=== PATIENT | female | born 1965 | race Caucasian/White ===

== ENCOUNTER 2021-07-23 11:44 | Outpatient (CLI) | payer MEDICAID, SELFPAY ==
--- NOTE | 2021-07-23 11:00 | DI.RAD_ITS ---
Exam(s) XR PELVIS AP EXAM: XR PELVIS AP CLINICAL HISTORY: preoperative planning. TECHNIQUE: 2D digital imaging was performed. COMPARISON: Left hip x-ray 03/12/2021 FINDINGS: No evidence of pelvic nor hip fracture. There are advanced degenerative changes in the right hip with advanced joint space narrowing and dege nerative subarticular cysts on both sides the joint. Minimal degenerative changes noted in the left hip. IMPRESSION: Advanced degenerative changes in the right hip. DATA REPOSITORY: RADIATION DOSE DELIVERED:
== END 2021-07-23 11:45 | disposition home or self-care (01) ==
LOC: DIORS 11:45
PROVIDERS: PCP Naturopath; Referring Provider Naturopath; Visit Provider Physician Assistant
DX: M16.11 Unilateral primary osteoarthritis, right hip (principal); M25.551 Pain in right hip
CPT/HCPCS: 72170

== ENCOUNTER 2021-07-30 02:04 | Outpatient (CLI) | payer MEDICAID, SELFPAY ==
[2021-07-30 10:38] LABS: Source Nasal/Nares
[2021-07-30 14:08] LABS: COVID-19 PCR Negative (Negative)
== END 2021-07-30 02:05 | disposition home or self-care (01) ==
LOC: LBO 02:04
PROVIDERS: PCP Naturopath; Visit Provider Student in an Organized Health Care Education/Training Program
DX: Z20.822 Contact with and (suspected) exposure to COVID-19 (principal); Z01.818 Encounter for other preprocedural examination
CPT/HCPCS: 87635

== ENCOUNTER 2021-07-30 02:48 | Outpatient (CLI) | payer MEDICAID, SELFPAY ==
[2021-07-30 09:45] LABS: HCT 43.9 % (36.0-46.0); HGB 14.2 g/dL (11.2-15.7); MCH 30.3 pg (27.0-33.0); MCHC 32.3 % (32.0-36.0); MCV 93.6 fL (80-95); Platelet Count 231 10^3/uL (130-400); RBC 4.69 10^6/uL (3.93-5.22); RDW 12.8 % (11.7-14.6); RDW-SD 44.1 fL; WBC 6.46 10^3/uL (4.4-10.8)
[2021-07-30 10:12] LABS: Anion Gap 7.9 mmol/L (3-11); BUN 11 mg/dL (7-18); CO2 28.1 mmol/L (21.0-32.0); CREATININE 0.9 mg/dL (0.55-1.02); Calcium 9.4 mg/dL (8.5-10.1); Chloride 103 mmol/L (98-107); Glucose 94 mg/dL (74-106); Potassium 4.5 mmol/L (3.5-5.1); Sodium 139 mmol/L (136-145)
== END 2021-07-30 02:49 | disposition home or self-care (01) ==
LOC: LBO 02:48
PROVIDERS: PCP Naturopath; Visit Provider Student in an Organized Health Care Education/Training Program
DX: M16.11 Unilateral primary osteoarthritis, right hip (principal); Z01.818 Encounter for other preprocedural examination
CPT/HCPCS: 36415; 80048; 85027; 86850; 86900; 86901

== ENCOUNTER 2021-07-31 08:51 | Day surgery (SDC) | payer MEDICAID, SELFPAY ==
[2021-07-31] VITALS (8 sets, daily range): BP systolic 103–133; BP diastolic 37–87; PULSE 62–73; RESP 12–18; TEMP 36.3–36.5; O2SAT 99–100; BMI 23.2
[2021-07-31] MEDS: Acetaminophen 500 MG TAB 1000 MG PO (09:44)
[2021-07-31] MEDS: Celecoxib 200 MG CAP 400 MG PO (09:44)
[2021-07-31] MEDS: Lactated Ringers 1,000 ML 80 ML IV (10:07)
--- NOTE | 2021-07-31 10:24 | W.ANESPRE ---
General Info Date of Service Date Performed: 07/31/21 Height: 5 ft 11 in Weight: 75.5 kg Body Mass Index (BMI): 23.2 Surgical Procedure: Operation Date: 07/31/21 11:50 Proposed Procedure Side Surgeon p Hip Total Hip Anterior Right Tj Tyler MD Meds Allergies and Home Medications Allergies Allergy/AdvReac Type Severity Reaction Status Date / Time bee venom protein (honey bee) Allergy Severe ANAPHYLAXIS Verified 07/31/21 09:10 codeine AdvReac Nausea Verified 07/31/21 09:10 oxycodone AdvReac Nausea Verified 07/31/21 09:10 Home Medication Medication Instructions Recorded magnesium gluconate 27.5 mg 27.5 mg PO BID 05/14/21 magnesium (500 mg) tablet acetaminophen 500 mg capsule 1,000 mg PO Q8H PRN PRN #90 cap 07/31/21 aspirin 81 mg tablet,delayed 81 mg PO BID #60 tab 07/31/21 release celecoxib 200 mg capsule (Celebrex) 200 mg PO BID #60 cap 07/31/21 hydromorphone 4 mg tablet 4 mg PO Q6H PRN #14 tab 07/31/21 pantoprazole 40 mg tablet,delayed 40 mg PO DAILY #30 tab 07/31/21 release (Protonix) Current Visit Medications: Current Medications Generic Name Dose Route Start Last Admin Trade Name Freq PRN Reason Stop Dose Admin Acetaminophen 1,000 mg 07/31/21 06:00 07/31/21 09:44 Acetaminophen 500 Mg Tab PO 07/31/21 18:00 1,000 mg PREOP CELIA Administration Celecoxib 400 mg 07/31/21 06:00 07/31/21 09:44 Celecoxib 200 Mg Cap PO 07/31/21 18:00 400 mg PREOP CELIA Administration Hydromorphone HCl 0.5 mg 07/31/21 07:45 Hydromorphone 2 Mg/Ml Vial IVP Q2H PRN PRN Hydromorphone HCl 2 - 4 mg 07/31/21 07:45 Hydromorphone 2 Mg Tab PO Q3H PRN PRN Tranexamic Acid 1,000 mg/ 60 mls @ 360 mls/hr 07/31/21 06:00 Sodium Chloride IV 07/31/21 18:00 PREOP CELIA Ringer's Solution 1,000 mls @ 80 mls/hr 07/31/21 06:00 07/31/21 10:07 IV 08/29/21 23:59 80 mls/hr INFUSION CELIA Administration Cefazolin Sodium/Dextrose 2 gm in 50 mls @ 100 mls/hr 07/31/21 06:00 Ancef Duplex IVPB 08/29/21 23:59 PREOP CELIA Cefazolin Sodium/Dextrose 1 gm in 50 mls @ 100 mls/hr 07/31/21 16:00 Ancef Duplex IVPB 08/01/21 08:29 Q8H CELIA IV Miscellaneous Supplies 1 each 07/31/21 06:00 Iv Access IV 08/29/21 23:59 DIRECTED CELIA Ondansetron HCl 4 mg 07/31/21 07:45 Ondansetron 4 Mg/2 Ml Vial IVP Q6H PRN PRN Nausea Sodium Chloride 0 ml 07/31/21 06:00 Normal Saline Flush 10 Ml Syr IV 08/29/21 23:59 PRN PRN Sodium Chloride 0 ml 07/31/21 06:00 Normal Saline 10 Ml Vial IJ 08/29/21 23:59 DIRECTED PRN Sterile Water 0 ml 07/31/21 06:00 Water,Injection,Sterile 10 Ml Vial IJ 08/29/21 23:59 DIRECTED PRN PFSH Active Problems Active Problems: Problem Status Onset Code Primary osteoarthritis of right hip M16.11 Medical History Medical History Alcoholic cirrhosis of liver Quit alcohol: 2015 Bilateral kidney stones History of stent placement - followed by removal of stents Left knee DJD History of multiple injections Medical History Comments:: daily marijuana - reports mostly tincture; reports smokes rarely Surgical History Surgical History Plantar fasciitis of right foot (2011) Rupture of anterior cruciate ligament of both knees (~05/2001) Status post arthroscopy of left knee (1996) medial mensicus Status post arthroscopy of right knee (1997) medial mensicus Status post cholecystectomy (2008) Status post hysterectomy with oophorectomy (2009) ~5 years of hormonal issues that were managed by rheumatology Status post repair of medial collateral ligament (~05/2001) Status post tubal ligation (1988) Tobacco Smoking/Tobacco Use Status: Never Alcohol Alcohol Intake: former Substance Use Substance use type: marijuana Details: daily marijuana - reports mostly tincture; reports smokes rarely Vital Signs and Lab Results Lab Results Blood Type / Crossmatch: Patient ABO/Rh A Positive 07/30/21 Antibody Screen NEGATIVE 07/30/21 Complete Blood Count: White Blood Count 6.46 10^3/uL (4.4-10.8) 07/30/21 09:20 07/30/21 Red Blood Count 4.69 10^6/uL (3.93-5.22) 07/30/21 09:20 07/30/21 Hemoglobin 14.2 g/dL (11.2-15.7) 07/30/21 09:20 07/30/21 Hematocrit 43.9 % (36.0-46.0) 07/30/21 09:20 07/30/21 Platelet Count 231 10^3/uL (130-400) 07/30/21 09:20 07/30/21 Complete Metabolic Panel: Sodium Level 139 mmol/L (136-145) 07/30/21 09:20 07/30/21 Potassium Level 4.5 mmol/L (3.5-5.1) 07/30/21 09:20 07/30/21 Chloride Level 103 mmol/L (98-107) 07/30/21 09:20 07/30/21 Carbon Dioxide Level 28.1 mmol/L (21.0-32.0) 07/30/21 09:20 07/30/21 Blood Urea Nitrogen 11 mg/dL (7-18) 07/30/21 09:20 07/30/21 Creatinine 0.9 mg/dL (0.55-1.02) 07/30/21 09:20 07/30/21 Estimated GFR/1.73 m2 >= 60.00 (mL/min/1.73m2) 07/30/21 09:20 07/30/21 Calcium Level 9.4 mg/dL (8.5-10.1) 07/30/21 09:20 07/30/21 Glucose Level 94 mg/dL (74-106) 07/30/21 09:20 07/30/21 Liver Function Panel: No Data to Display Coagulation Panel: No Data to Display Cardiac Panel: No Data to Display Arterial Blood Gas: No Data to Display Venous Blood Gas: No Data to Display Pancreas Panel: No Data to Display Thyroid Panel: No Data to Display Infectious Disease: Coronavirus (COVID-19)(PCR) Negative (Negative) 07/30/21 08:55 07/30/21 Coronavirus 2019 Source Nasal/Nares 07/30/21 08:55 07/30/21 Blood Cultures: No Data to Display Toxicology Panel: No Data to Display Anesthesia Assessment and Plan Anesthesia History Personal History: No History of Anesthesia Complications Family History: No Family History of Anesthesia Complications Exercise Tolerance Exercise Tolerance: Metabolic Equivalents>4 Pertinent Negatives Pertinent Negatives: No Symptoms of GERD, No Major Cardiovascular Symptoms or Complaints, No Major Pulmonary Symptoms or Complaints and No History of CVA/TIA Cardiac & Pulmonary Exam Cardiac Exam: Normal S1/S2 Heart Sounds Pulmonary Exam: Clear Bilateral Breath Sounds Implantable Cardiac Device Does patient have a Pacemaker or an ICD?: No Airway Exam Known Difficult Airway: No Mallampati Class: 1 Mouth Opening: Normal (> 3cm) Thyromental Distance: Greater than 3 cm Neck Range of Motion: Full ROM Neck Circumference: Normal Teeth Condition: Normal Dentition ASA Classification ASA Score: ASA 2 Emergency Case?: No NPO Status NPO Status: NPO Clears >2 hours, Solids >8 hours Anesthesia Plan Resuscitation Status: Full Code Anesthesia Technique: Spinal Anesthesia Airway Planned: Natural Airway Monitors Used: Standard Monitors
--- NOTE | 2021-07-31 10:31 | W.ANESPOSTOP ---
Postoperative Evaluation Date, Time and Location Date Performed: 07/31/21 Time Performed: 10:31 Patient Location: PACU Vital Signs Most Recent Manually Entered Vital Signs: Adult Blood Pressure: 114/68 Heart Rate: 79 Respirations: 20 Oxygen Saturation (%): 97 Temperature (C): 36.3 C Pain Score (0-10 Scale): 0 Pain Score Most Recent Pain Score: Most Recent Pain Score Pain Level 7 07/31/21 09:14 Assessment Mental Status: Awake (Alert & Oriented to Patient Baseline) Airway and Respiratory Function: Patent airway with normal (patient baseline) respiratory exam Cardiovascular Function: Hemodynamically Stable Hydration Status: Adequately Hydrated Nausea & Vomiting: No Nausea or Vomiting Pain: Pt. Denies Any Pain Peripheral Nerve Block: Patient did not receive a nerve block Teaching Patient Teaching: Discussed Safe Use of Pain Medication Given Recent Anesthesia and Discussed Safe Use of Pain Medication Given Likely or Known TORIBIO
--- NOTE | 2021-07-31 10:45 | DI.RAD_ITS ---
Exam(s) XR HIP RT IN OR EXAM: XR HIP RT IN OR CLINICAL HISTORY: RTHA TECHNIQUE: 2D and realtime digital imaging was performed. CONTRAST MATERIAL: Refer to procedure report. COMPARISON: CR XR PELVIS AP from 07/23/2021 FINDINGS: Fluoroscopy was provided for Dr. Tyler during the performance of a right total hip replacement. Please refer to the procedure report for complete details. Ka,r=2.674 mGy IMPRESSION: RADIATION DOSE DELIVERED:
[2021-07-31] MEDS: ceFAZolin 2 GM/50 ML BAG IVPB (11:35)
[2021-07-31] MEDS: Ketorolac 30 MG/ML VIAL (12:15)
[2021-07-31] MEDS: Bupivacaine 0.25% Pres-Free 30 ML VIAL (12:15)
--- NOTE | 2021-07-31 12:42 | ROE_ITS ---
Date of service: 07/31/21 Time of Service: 13:00 Operative Note Operative Note DATE OF PROCEDURE: 07/31/21 PRE-OP DIAGNOSIS: Right Hip Osteoarthritis POST-OP DIAGNOSIS: same PROCEDURE: Right Anterior Total Hip Arthroplasty SURGEON: Tj Tyler Refer to Anesthesia Record ESTIMATED BLOOD LOSS: 150 PATHOLOGY: none sent COMPLICATIONS: None Patient was transported to: PACU Patient's condition: stable Implants: 1. Depuy Montezuma Acetabular Component, 52mm 2. Depuy Acetabular Liner, [id number] 3. Depuy Corail Standard Collared Femoral Stem, Size 12 4. Depuy Altrx Ceramic Femoral Head, Size 36+5mm Indications: I have seen Mariola in clinic for symptoms of hip arthritis, confirmed with radiographic findings. She has exhausted nonoperative methods and was having significant limitations in daily function and desired better function and less pain. I discussed the technical details of a hip replacement. I explained the risks of the procedure to include, but not limited to, bleeding, infection, pain, stiffness, fracture, damage to nerves and vessels, damage to muscles and tendons, loosening, instability, leg length inequality, need for repeat procedure, blood clot and cardiopulmonary demise. Despite these risks, Mariola elected to proceed. Findings: There was significant signs of arthritis throughout the hip, mostly of the femoral head. Procedure Description: Mariola was greeted in the preoperative holding area where the correct side was identified and marked. The consent was reviewed with the patient and signed. The history and physical was updated. All questions were answered. Mariola was taken back to the operating room. A spinal anesthestic was then administered. The feet were wrapped with cast padding and Coban and then placed into the boot liners and then into the boots. Care was taken to protect the skin and make sure the heels were fully down and the boots were stable. The patient was then positioned onto the HANA table. Both legs were held in a neutral position. SCDs were applied. The patient was then slid down onto a peroneal post. Prophylactic antibiotics in the form of Cefazolin were administered. 1g of Tranxemic Acid was given intravenously within 30 minutes of incision. The right leg was then prepped with Chloraprep and draped in a standard fashion. A second prep with Chloraprep was performed prior to placement of a shower-curtain type drape with Iodine impregnated skin protection. A timeout to confirm correct identity, side and site, procedure, allergies, anesthesia, and medical concerns was performed. An obliquely oriented incision was made starting lateral to the ASIS and running distal over the Tensor Fascia Parisa (TFL) muscle belly toward the fibular head, approximately 10cm. The skin and soft tissue was dissected sharply, through Apurva?s fascia, and to the fascia of the TFL. With the fascia and superior border of the IT band identified, the fascia was incised with a new knife just above any perforators from the IT band. The TFL muscle belly was bluntly dissected away from the fascia and moved laterally. The fat between TFL and rectus was identified to ensure the dissection was not within the TFL. Blunt dissection created space between abductors and the capsule and retractor was placed over the lateral femoral neck. The fibers of the rectus femoris tendon were identified and these were freed from the anterior capsule. A second cobra retractor was placed around the medial femoral neck. The TFL was further retracted laterally to show the deep fascia. Careful dissection through this layer identified three main crossing vessels of the lateral femoral circumflex. These were cauterized in multiple locations and then cut without any noticeable bleeding. The TFL was further released bluntly from the deep fascia to expose anterior hip capsule and fat The Pierre orthopaedic retractor was then placed beneath the TFL and against sartorius and medial soft tissues to protect and retract the soft tissues. A T-capsulotomy was then performed starting at the superior lateral acetabulum and moving distally to the intertrochanteric ridge. These capsular flaps were tagged with a No. 1 Ethibond and elevated from within. The capsular flaps were released to the shoulder of the lateral neck and to the lesser trochanter to give excellent visualization of the proximal femur. A neck osteotomy was performed using an oscillating saw based on preoperative templates. This cut started in the shoulder and of the lateral neck and exited medially. The saw was at all times directed medially to avoid injury to the greater trochanter. Gross traction was applied to the leg and the osteotomy opened. The femoral head was removed with a corkscrew, making sure to protect the TFL on its exit. Traction was released after head removal. This was measured on the back table to determine the starting reamer size. Portions of the rectus obscuring visualization were minimally elevated off the superior acetabulum. An anterior retractor was placed over the anterior wall between capsule and labrum and attached to the Gripper retraction system. The femur was rotated to 90 degrees and medial capsule was fully released until the lesser trochanter was palpable and visible; the femur was returned to 30 degrees. A posterior retractor was placed similarly between capsule and labrum. This provided excellent visualization. The contents of the cotyloid fossa were removed with electrocautery and the labrum was removed with a knife. Acetabular reaming began with a 48mm reamer. This first reaming was directed anterior to posterior and medial to get down to the true floor. This was inspected and reamed until the true floor was reached. The anterior retractor was then released and entry and exit was provided by traction on the capsular flaps. I then reamed sequentially up to a 52mm reamer where good fit was obtained. The larger reamers were oriented based on anatomical reference of the anterior and lateral chan to ensure proper abduction and anteversion. Positioning and size was confirmed with the fluoroscopy. A 52mm Depuy Montezuma acetabular component was selected. The acetabulum was reamed around the pe riphery with the selected acetabular size to prevent a rim fit. The deep tissues were irrigated. The acetabular component was then impacted in a position of about 40-45 degrees of abduction and 15-20 degrees of anteversion, using the patient?s anatomy as the ultimate landmark. Fluoroscopy was used to confirm this. There was excellent soldering machine tender of the acetabular component and the inserting handle was removed. The acetabular liner, Depuy [id number] polyethylene liner, was inserted and lined up with the tines of the acetabular component. There was no soft tissue interposition. The liner was then impacted into position and confirmed to be well-seated. A portion of the steven-articular cocktail was then injected around the acetabulum into the capsule and periosteum. This cocktail consisted of 50cc of 0.25% Bupivicaine and 20cc of Exparel and 30mg of Ketorolac. The leg was rotated to 120 degrees. Any remaining medial capsule was released until the lesser trochanter was easily palpable. A retractor was placed medially. The lateral capsule was further released into the shoulder to allow access to the greater trochanter. A Anthony retractor was placed over the greater trochanter which allowed the trochanter to flip in front of the capsule for excellent exposure. The leg was brought down into maximal extension and 20 degrees of adduction while ensuring there was no impingement on the acetabulum. Any remnant capsule within the trochanter was released. Piriformis and obturator externis were identified and protected. There was excellent access to the proximal femur. The lateral neck remnant was removed with a rongeur. A blunt canal probe was used to identify the canal and trajectory for later broaching. A box osteotome initiated the broach course. A small curved rasp and a curved curette were used to work laterally. Broaching then began with a size 8 Corail broach. This was inserted manually around the trochanter and into the canal before mallet blows. The broach was seated to a few millimeters below the cut level based on the neck cut and the preoperative template. Sequential broaching was continued with the Offerti pneumatic broaching device until a tig ht fit was obtained with good rotational control of the femur. A trial standard neck was inserted along with a +5 trial head. The leg was brought out of extension and adduction and then reduced with traction and internal rotation. The leg was stable anteriorly in a position of 30 degrees of extension and 90 degrees of external rotation. Fluoroscopy was used to ensure there was no fracture and the stem was seated well. Leg lengths were checked with an AP pelvis and pelvic reference points. Sapient navigation system was used to confirm appropriate positioning and leg length and offset. Once content with the desired offset and leg lengths, the leg was brought back into extension, external rotation and adduction. The periosteum and surrounding tissue was injected with remaining portion of the steven-articular cocktail. The proximal femur was irrigated as well as the deep tissues. The Depuy Corail standard collared stem, size 12, was then manually inserted into the proximal femur making sure to control rotation. It was then malleted into position with light blows, giving breaks to allow bone expansion and decrease risk of fracture. The selected Depuy Altrx Ceramic Head, size 36+5mm, was then placed onto the clean and dry trunnion and secured with impaction onto the tapered fit. The leg was brought back out of extension and adduction and reduced with traction and internal rotation. Stability was confirmed with no shuck at 90 degrees of external rotation and 30 degrees of extension. No impingement through range of motion arc. Final x-ray images were obtained with fluoroscopy to confirm adequate positioning and no intraoperative fracture. The deep tissues were thoroughly irrigated with Irrisept chlorhexadine solution. The capsule was then reapproximated with the previously placed Ethibond sutures. The TFL fascia was finally closed with a No. 2 Stratafix, barbed suture. Deep tissues were then reapproximated with 0 Vicryl and a running 2-0 Vicryl. The skin was closed with a running 4-0 Monocryl in a subcuticular fashion. This was reinforced with skin glue. A Mepilex silver dressing was applied. At the end of the case, all counts were correct. Mariola was transferred to the hospital bed without difficulty and suffering no apparent complication. Mariola has a good prognosis. Physical therapy will start today and without restrictions, weight-bearing as tolerated. Aspirin 81mg BID will be used for DVT prophylaxis.
[2021-07-31] MEDS: HYDROmorphone 2 MG TAB PO (14:32)
--- NOTE | 2021-07-31 14:49 | W.ANESPOSTOP ---
Postoperative Evaluation Date, Time and Location Date Performed: 07/31/21 Time Performed: 14:49 Patient Location: Day Surgery Unit Vital Signs Most Recent Imported Vital Signs: Most Recent Vital Signs Temp Pulse Resp BP Pulse Ox 36.4 C L 63 12 133/73 100 07/31/21 14:05 07/31/21 14:05 07/31/21 14:05 07/31/21 14:05 07/31/21 14:05 Pain Score Most Recent Pain Score: Most Recent Pain Score Pain Level 0 07/31/21 14:05 Assessment Mental Status: Awake (Alert & Oriented to Patient Baseline) Airway and Respiratory Function: Patent airway with normal (patient baseline) respiratory exam Cardiovascular Function: Hemodynamically Stable Hydration Status: Adequately Hydrated Nausea & Vomiting: No Nausea or Vomiting Pain: Pt. Denies Any Pain Peripheral Nerve Block: Patient did not receive a nerve block
--- NOTE | 2021-07-31 15:33 | IN_ITS ---
Date of service: 07/31/21 Time of Service: 15:33 PT Notes Visit Reasons: Right DRE Physical Therapy Day Surgery Initial Evaluation Date: 07/31/2021 Referring Doctor: Tj Tyler MD PT Orders: PT CONSULT: Status post Ortho surgery. Status post R DRE Precautions: WBAT on right LE with AD. Patient Profile/Admitting Diagnosis: Mariola is a 55-year-old female with primary unilateral osteoarthritis of the right hip and is status post right anterior total hip arthroplasty on postoperative day 0. PMHX: Medical History?(Updated 07/23/21 @ 11:34 by Bridgette Parmar) Alcoholic cirrhosis of liver Quit alcohol: 2015Bilateral kidney stones History of stent placement - followed by removal of stents Left knee DJD History of multiple injections Surgical History?(Updated 07/23/21 @ 11:32 by Bridgette Parmar) Plantar fasciitis of right foot (2011) Rupture of anterior cruciate ligament of both knees (~05/2001) Status post arthroscopy of left knee (1996) medial mensicusStatus post arthroscopy of right knee (1997) medial mensicusStatus post cholecystectomy (2008) Status post hysterectomy with oophorectomy (2009) ~5 years of hormonal issues that were managed by rheumatologyStatus post repair of medial collateral ligament (~05/2001) Status post tubal ligation (1988) Social History/Home Situation: Lives with in a private home with one- step to enter with a grab bar on the right side. Has had good experience with use of bilateral axilla crutches due to previous surgeries. Equipment Owned/DME: Bilateral axillary crutches Subjective: Agreeable to PT consult. Denies headache, chest pain, and dizziness throughout session. Objective: General Observation: Mepilex Ag over surgical incision. TEDS to the legs. Mental Status: Alert and oriented x4 Pain: Reports 3?4/10 pain on the right hip with ambulation ROM: Right Lower Extremity: Hip flexion lacks the last 25% of movement against gravity while seated at edge of bed. Hip abduction WFL. Knee flexion WFL. Ankle dorsiflexion WFL. Ankle plantarflexion WFL. Left Lower Extremity: Hip flexion WFL. Hip abduction WFL. Knee flexion WFL. Ankle dorsiflexion WFL. Ankle plantarflexion WFL. Strength: Right Lower Extremity: Hip flexors 3-/5. Hip abductors 5/5. Knee flexors 5/5. Knee extensors 5/5. Ankle dorsiflexors 5/5. Ankle plantarflexors 5/5. Left Lower Extremity: Hip flexors 5/5. Hip abductors 5/5. Knee flexors 5/5. Knee extensors 5/5. Ankle dorsiflexors 5/5. Ankle plantarflexors 5/5. Sensation: Intact to bilateral lower extremity as to pain and light pressure Bed Mobility/Transfers: Supine to sit supervision Sit to stand contact-guard assist Stand to sit standby assist Bed to chair contact-guard assist Gait: Instructed patient with level surface ambulation using bilateral axillary crutches utilizing three-point gait pattern with WBAT on the right LE. Contact- guard assist. through gait pattern. No loss of balance. No shortness of breath. No increase in pain. Balance: Static Sitting: Normal Dynamic Sitting: Normal Static Standing: Fair Dynamic Standing: Fair Special Tests: Mobility Limitations Standardized Measure [facility]-P[facility] 6 clicks Basic Mobility Inpatient Short Form: Raw Score: 20 CMS Score: 36% deficit Informed Consent/Education: Patient instructed in purpose of PT consult. Education and training on initial set of exercises that can be done at home have been completed with patient. Assessment: Mariola requires the use of bilateral axillary crutches to maximize independence and reduce fall risk. She will have the support of her as she recovers at home. Patient presents with clinical signs and symptoms consistent with current/admitting diagnoses that have resulted to mobility limitations, gait instability, generalized weakness, and impairment of motor control as demonstrated by the following impairment level findings: 1. Decreased strength to right hip major muscle groups 2. Impaired standing balance 3. Limitation of joint range of motion in right hip Impairments are contributing to the following functional limitations: 1. Inability to safely ambulate without assistive device 2. Increase completion time for mobility ADL performance 3. Increased fall risk Patient is assessed as a 31504 moderatecomplexity based on the following: History: 55-year-old female with impairment level findings, functional limitations, and past medical history as indicated above Examination: Demonstrable impairment in strength, balance, and mobility level with underlying impairments and functional limitations as documented above Presentation: Evolving Decision Makin moderate complexity Goals: N/A. PT evaluation and 1-2 treatment sessions only for functional mobility training using recommended AD and for HEP instruction. Plan of Care/Treatment Plan: N/A. PT evaluation and 1-2 treatment session only for functional mobility training using recommended AD and for HEP instruction. DISCHARGE RECOMMENDATIONS: [] Home with no services [] [] Home with services [specify] [X] Home with outpatient PT. Home when medically cleared by orthopedic surgeon. Will benefit from outpatient PT services in order to facilitate return to independent community ambulation and vocational activities without an assistive device. [] SNF for continued rehabilitation [] [] [facility] [] [] SNF versus LTC based on ability to participate and progress [] TREATMENT CODE/TIME: 83122 x 20 minutes, 9753 0 x 15 minutes beginning at 15:33 PM. Thank you for the opportunity to participate in the care of this patient. Perlita Card PT, DPT, CLT [facility] [place], [place]
== END 2021-07-31 16:30 | disposition home or self-care (01) ==
LOC: SUR 08:52
PROVIDERS: PCP Naturopath; Visit Provider Student in an Organized Health Care Education/Training Program
PROC: (CPT 27130; principal; 2021-07-31 11:30)
DX: M16.11 Unilateral primary osteoarthritis, right hip (principal)
CPT/HCPCS: 27130; 20985; 97162; 97530; 73501; J0690; J1100; J1885; J2001; J2250; J2405

== ENCOUNTER 2021-08-13 11:22 | Outpatient (CLI) | payer MEDICAID, SELFPAY ==
--- NOTE | 2021-08-13 11:00 | DI.RAD_ITS ---
Exam(s) XR HIP RT COMPLETE AP PELVIS EXAM: XR HIP RT COMPLETE AP PELVIS INDICATION: 1ST POST OP R DRE. COMPARISON: CR XR PELVIS AP from 07/23/2021 XA XR HIP RT IN OR from 07/31/2021 TECHNIQUE: 2D digital imaging was performed. Two views FINDINGS: There has been no change in the right hip prosthesis or appearance of the surrounding bone. DATA REPOSITORY: RADIATION DOSE DELIVERED:
== END 2021-08-13 11:23 | disposition home or self-care (01) ==
LOC: DIORS 11:22
PROVIDERS: PCP Naturopath; Visit Provider Student in an Organized Health Care Education/Training Program
DX: M16.11 Unilateral primary osteoarthritis, right hip (principal); Z96.641 Presence of right artificial hip joint; Z47.1 Aftercare following joint replacement surgery
CPT/HCPCS: 73502

== ENCOUNTER 2021-10-25 03:18 | Outpatient (CLI) | payer MEDICAID, SELFPAY ==
[2021-10-25 17:46] LABS: INR 0.9 Ratio (0.9-1.1)
[2021-10-25 20:45] LABS: D-Dimer (UVM) <200 ng/mL DDU (<=230)
[2021-10-26 08:34] LABS: PTT (UVM) 30 secs (26-37)
[2021-10-26 08:36] LABS: Mix See Comments
[2021-10-26 10:08] LABS: Factor 8 Assay 140 % (50-150)
[2021-10-26 10:36] LABS: Antithrombin 3, Funct. 117 % (85-125)
[2021-10-26 14:16] LABS: ANA Interpretation Positive (Negative); ANA Titer Pattern 1:320 Homogeneous
[2021-10-27 17:43] LABS: Beta 2 GP1 Ab IgG <9.4 U/mL; Beta 2 GP1 Ab IgM <9.4 U/mL
[2021-10-30 08:28] LABS: Dilute Russell Viper Venom 29.7 secs (25.2-42.2); LA Cascade Summary (See Note); Silica Clotting Time 38.6 secs (30.2-48.4)
[2021-10-30 14:08] LABS: Phospholipid Ab, IgG <9.4 GPL; Phospholipid Ab, IgM 17.4 MPL
[2021-10-31 10:48] LABS: Factor V Leiden(R506Q) Mut Negative (Negative)
[2021-10-31 11:09] LABS: Protein C, Functional 143 % (71-199); Protein S, Functional 128 % (64-147)
== END 2021-10-25 03:19 | disposition home or self-care (01) ==
LOC: LBO 03:18
PROVIDERS: PCP Student in an Organized Health Care Education/Training Program; Visit Provider Obstetrics & Gynecology
DX: Z83.2 Family history of diseases of the blood and blood-forming organs and certain disorders involving the immune mechanism (principal)
CPT/HCPCS: 36415; 81240; 81241; 82784; 85300; 85303; 85306; 85610; 85613; 85730; 85732; 85240; 85379; 86038

== ENCOUNTER 2021-11-09 06:57 | Day surgery (SDC) | payer MEDICAID, SELFPAY ==
[2021-11-09 07:18] VITALS: BP 109/86; PULSE 66; RESP 18; TEMP 36.5; O2SAT 99
[2021-11-09] MEDS: Tropicam./Phenyleph. (1/2.5%) 5 ML BTL OS ×3 (07:26→07:45)
--- NOTE | 2021-11-09 07:49 | ANES.PREOP_ITS ---
General Info Date of Service Date Performed: 11/09/21 Height: 5 ft 8.5 in Weight: 76.8 kg Body Mass Index (BMI): 25.3 Surgical Procedure: Operation Date: 11/09/21 08:40 Proposed Procedure Side Surgeon p Cataract Extraction with IOL Implant Left Hitesh Murray MD Meds Allergies and Home Medications Allergies Allergy/AdvReac Type Severity Reaction Status Date / Time bee venom protein (honey bee) Allergy Severe ANAPHYLAXIS Verified 11/08/21 13:46 Latex, Natural Rubber AdvReac Intermediate blister/marcy Verified 11/08/21 13:46 h codeine AdvReac Nausea Verified 11/08/21 13:46 oxycodone AdvReac Nausea Verified 11/08/21 13:46 Home Medication Medication Instructions Recorded acetaminophen 500 mg capsule 1,000 mg PO Q8H PRN PRN #90 caps 07/31/21 celecoxib 200 mg capsule (Celebrex) 200 mg PO BID #180 caps 10/05/21 magnesium glycinate 100 mg tablet 200 mg PO BID 11/08/21 Current Visit Medications: Current Medications Generic Name Dose Route Start Last Admin Trade Name Freq PRN Reason Stop Dose Admin Acetaminophen 1,000 mg 11/09/21 06:00 Acetaminophen 500 Mg Tab PO Q4H PRN PRN Miscellaneous Medication 0 ml 11/09/21 06:00 Prednisolone 1%, Moxifloxacin 0.5%, Nepafenac 0.1% 5ml Btl OS DIRECTED CELIA Miscellaneous Medication 0 ml 11/09/21 06:00 11/09/21 07:45 Tropicam./Phenyleph. (1/2.5%) 5 Ml Btl OS 1 drp DIRECTED CELIA Administration Tetracaine HCl 0 ml 11/09/21 06:00 Tetracaine 0.5% 4 Ml Btl OS DIRECTED CELIA PFSH Active Problems Active Problems: Problem Status Onset Code Cataract H26.9 Menopausal symptoms N95.1 Family history of bleeding or clotting disorder Z83.2 At risk for osteoporosis Z91.89 Snoring R06.83 Stressful life event affecting family Z63.79 Hx of postmenopausal hormone replacement therapy Z92.29 History of total right hip replacement 07/31/21 Z96.641 Arthritis M19.90 Thyroid disease E07.9 History of chronic back pain Z87.39 Skin lesions L98.9 Hx of renal calculi Z87.442 Caregiver stress Z63.6 History of cirrhosis of liver Z87.19 Hx of Lyme disease Z86.19 Hx of temporomandibular joint disorder Z87.39 Hx of tinnitus Z86.69 Medical History Medical History Alcoholic cirrhosis of liver Quit alcohol: 2014 Bilateral kidney stones 2015; History of stent placement - followed by removal of stents Left knee DJD History of multiple injections Medical History Comments:: daily marijuana - reports mostly tincture; reports smokes rarely Surgical History Surgical History H/O hand surgery microsurgery 2014 History of cholecystectomy 2010 Plantar fasciitis of right foot (2011) fascial release 2014 Rupture of anterior cruciate ligament of both knees (~05/2001) Status post arthroscopy of left knee (1996) medial mensicus Status post arthroscopy of right knee (1997) medial mensicus Status post cholecystectomy (2008) Status post hysterectomy with oophorectomy (2009) ~5 years of hormonal issues that were managed by rheumatology Status post repair of medial collateral ligament (~05/2001) Status post tubal ligation (1988) Tobacco Smoking/Tobacco Use Status: Never Passive smoking exposure: Yes Alcohol Alcohol Intake: never Substance Use Substance use: Daily Substance use type: marijuana Details: daily marijuana - reports mostly tincture; reports smokes rarely Prental History History 0 Para Hx # Term Pregnancies Multiple births Hx # Pregnancies Ectopic pregnancies AB induced Hx Number of Living Children AB spontaneous Vital Signs and Lab Results Vital Signs Most Recent Vital Signs in EMR: Most Recent Vital Signs Temp Pulse Resp BP Pulse Ox 36.5 C 66 18 109/86 99 11/09/21 07:18 11/09/21 07:18 11/09/21 07:18 11/09/21 07:18 11/09/21 07:18 Lab Results Blood Type / Crossmatch: No Data to Display Complete Blood Count: No Data to Display Complete Metabolic Panel: No Data to Display Liver Function Panel: No Data to Display Coagulation Panel: INR International Normalized Ratio 0.9 Ratio (0.9-1.1) 10/25/21 11:22 Prothrombin Time 10.1 secs (10.4-12.6) L 10/25/21 11:22 Activated Partial Thromboplast Time See Comments 10/25/21 11: 22 D-Dimer <200 ng/mL DDU (<=230) 10/25/21 11:22 Cardiac Panel: No Data to Display Arterial Blood Gas: No Data to Display Venous Blood Gas: No Data to Display Pancreas Panel: No Data to Display Thyroid Panel: No Data to Display Infectious Disease: No Data to Display Blood Cultures: No Data to Display Toxicology Panel: No Data to Display Anesthesia Assessment and Plan Anesthesia History Personal History: No History of Anesthesia Complications Family History: No Family History of Anesthesia Complications Exercise Tolerance Exercise Tolerance: Metabolic Equivalents>4 Pertinent Negatives Pertinent Negatives: No Symptoms of GERD Cardiac & Pulmonary Exam Cardiac Exam: Normal S1/S2 Heart Sounds Pulmonary Exam: Clear Bilateral Breath Sounds Implantable Cardiac Device Does patient have a Pacemaker or an ICD?: No Airway Exam Known Difficult Airway: No Mallampati Class: 1 Mouth Opening: Normal (> 3cm) Thyromental Distance: Greater than 3 cm Neck Range of Motion: Full ROM Neck Circumference: Normal Teeth Condition: Normal Dentition ASA Classification ASA Score: ASA 2 Emergency Case?: No NPO Status NPO Status: NPO Clears >2 hours, Solids >8 hours Anesthesia Plan Resuscitation Status: Full Code Anesthesia Technique: MAC Anesthesia Airway Planned: Natural Airway Monitors Used: Standard Monitors
[2021-11-09 08:15] VITALS: BMI 25.3
[2021-11-09] MEDS: Tetracaine 0.5% 4 ML BTL OS (08:35)
[2021-11-09] MEDS: Balanced Salt Soln.-PLUS 500 ML BAG (08:37)
[2021-11-09] MEDS: Duovisc Viscoelastic System EACH 1 EACH (08:37)
[2021-11-09] MEDS: Lidocaine 2% Jelly 6 ML SYR (08:38)
[2021-11-09] MEDS: Povidone-Iodine Ophth 30 ML BTL (08:38)
[2021-11-09 09:04] VITALS: BP 120/75; PULSE 75; RESP 18; TEMP 36; O2SAT 99
--- NOTE | 2021-11-09 09:06 | W.PM.DSUDISC ---
Discharge Plan Disposition Patient Disposition: HOME Condition: Good Discharge Details Attending Provider: Hitesh Murray Primary Care Provider: Marisel Dexter Home Meds and New Rx's Prescriptions: No Action celecoxib [Celebrex] 200 mg capsule 200 mg PO BID Qty: 180 3RF magnesium glycinate 100 mg tablet 200 mg PO BID Rx Instructions: for leg cramps/bowel regularity acetaminophen 500 mg capsule 1,000 mg PO Q8H PRN PRNQty: 90 0RF Discharge Instructions Stand Alone Forms: Post-op Topical Cataract, Press Ganey (DSU) Discharge Orders Discharge Orders: Discharge Order (Routine); Ordered 11/09/21 Ordered By: Hitesh Murray DS: Diagnosis Discharge Diagnosis (1) Posterior subcapsular age-related cataract of left eye: Status: Resolved (2) Nuclear sclerotic cataract of left eye: Status: Resolved (3) Cortical cataract of left eye: Status: Resolved
--- NOTE | 2021-11-09 09:07 | W.PM.OP ---
Date of service: 11/09/21 Time of Service: 09:07 Operative Note Operative Note DATE OF PROCEDURE: 11/09/21 PRE-OP DIAGNOSIS: Nuclear/cortical/posterior subcapsular cataract, left eye POST-OP DIAGNOSIS: same PROCEDURE: Cataract extraction using phacoemulsification with intraocular lens implant, left eye SURGEON: Hitesh Murray ANESTHESIA TYPE: Local By Surgeon and MAC Refer to Anesthesia Record PATHOLOGY: none sent COMPLICATIONS: None Patient was transported to: same day Patient's condition: stable Implants: [employer] / [employer] Tecnis [id number] Indications: Progressive decreased vision due to cataract, left eye Procedure Description: CATARACT SURGERY OPERATIVE REPORT PREOPERATIVE DIAGNOSIS: 1. Nuclear/cortical/posterior subcapsular cataract, left eye POSTOPERATIVE DIAGNOSIS: Same OPERATION: 1. Cataract extraction using phacoemulsification with posterior chamber intraocular lens implant, left eye. IOL: IOL Biblical Languages Professor/Model: [employer] / YOLI Tecnis [id number] IOL Power: + 20.50 diopters IOL Serial Number: [id number] Optic Diameter: 6.0 mm Haptic/Overall Diameter: 13.0 mm PHACO INFO: Rell iPeenurion Vision System with OZil and Active Fluidics Cumulative Dispersed Energy (CDE): 1.98 seconds SURGEON: Hitesh Murray MD, ELIAS ANESTHESIA: Monitored A [facility] (MAC), with local sub-tenon's anesthetic infiltration COMPLICATIONS: None SPECIMENS: None INDICATIONS FOR PROCEDURE: The patient is a 55-year-old lady with history of progressive decreased vision in her left eye who was noted to have a moderate nuclear/cortical/posterior subcapsular cataract. She is significantly symptomatic with complaints of glare and monocular diplopia. She has a history of trauma to the left eye. The option of cataract surgery was offered to the patient and she felt she was symptomatic enough that she wished to proceed. PROCEDURE: The correct surgical eye was identified and marked as the left eye and the pupil was dilated in the preoperative area using mydriatics and cycloplegics. The dilated pupil size was 7.5 mm. Oral sedation was administered in the form of an Imprimis MKO Melt (midazolam 3mg/ketamine 25mg/ondansetron 2mg). The patient was brought to the operating room where cardiopulmonary monitoring was instituted and surgical time-out was performed, confirming the correct operative eye and IOL power. Topical anesthesia was administered and ophthalmic povidone-iodine 5% was instilled into the conjunctival fornices. Lidocaine gel was applied to the cornea and the steven-ocular area was prepped with Betadine 10% solution and draped in the usual sterile fashion for intraocular surgery, including an aperture drape. A Tegaderm transparent film dressing was cut in half and used to cover the lashes and lid margins. Care was taken to sequester the lashes and lid margins under the Tegaderm dressing. A lid speculum was placed between the lids of the operative eye and the Rell LuxOR Revalia operating microscope was maneuvered into position. Jae scissors were then used to make a conjunctival buttonhole approximately 6mm posterior to the limbus in the inferonasal quadrant. Blunt dissection was carried out to expose bare sclera, and a blunt-tipped sub-tenon?s anesthesia cannula was introduced and passed posteriorly along the globe where non-preserved plain lidocaine was injected into posterior sub-Tenon?s space. A sideport knife was used to make a paracentesis port superiorly/superiortemporally. Intraocular phenylephrine/lidocaine was injected int the anterior chamber.. The anterior chamber was filled with viscoelastic. A 2.4mm keratome knife was used to construct a 2-plane near-clear corneal tunnel extending 2.0mm into clear cornea temporally. A flap was raised on the anterior capsule and capsulorhexis forceps were used to complete a continuous curvilinear capsulorhexis of 5.5 mm. The capsule was noted to be quite thin, with mild zonular laxity. Balanced salt solution was then used to perform cortical cleaving hydrodissection and nuclear hydrodelineation until the lens could be freely rotated within the capsular bag. The lens nucleus was then disassembled and removed within the capsular bag and iris plane using phacoemulsification. Residual cortical material was removed using the 45-degree angled silicone I/A tip with 0.3mm port. The posterior capsule was carefully polished to remove as much residual lens epithelial cells as safely possible. The capsular bag was then inflated and the anterior chamber deepened with viscoelastic. The lens implant described above was inserted into the capsular bag using the YOLI Venetie Injector. A Kuglen hook was used to dial the IOL into position. Residual viscoelastic was then removed first from posterior to the IOL, then from the anterior chamber using the I/A handpiece. The lens implant was noted to center nicely within the capsular bag. The incisions were stromally hydrated, and the anterior chamber was reformed using BSS. Then 0.5cc of moxifloxacin 1.0mg/ml were injected into the capsular bag and anterior chamber. The incisions were checked with a Weck spear and found to be secure. Several drops of ophthalmic povidone-iodine 5% were then applied to the eye followed by two drops of Imprimis combination prednisolone/moxifloxacin/nepafenac solution. The drapes were removed and a clear plastic protective eye shield was placed over the eye. The patient was then returned to Same Day Surgery in stable condition.
--- NOTE | 2021-11-09 09:20 | W.ANESPOSTOP ---
Postoperative Evaluation Date, Time and Location Date Performed: 11/09/21 Time Performed: 09:20 Patient Location: Day Surgery Unit Vital Signs Most Recent Imported Vital Signs: Most Recent Vital Signs Temp Pulse Resp BP Pulse Ox 36.0 C L 75 18 120/75 99 11/09/21 09:04 11/09/21 09:04 11/09/21 09:04 11/09/21 09:04 11/09/21 09:04 Pain Score Most Recent Pain Score: Most Recent Pain Score Pain Level 0 11/09/21 09:04 Assessment Mental Status: Awake (Alert & Oriented to Patient Baseline) Airway and Respiratory Function: Patent airway with normal (patient baseline) respiratory exam Cardiovascular Function: Hemodynamically Stable Hydration Status: Adequately Hydrated Nausea & Vomiting: No Nausea or Vomiting Pain: Pt. Denies Any Pain Peripheral Nerve Block: Patient did not receive a nerve block
[2021-11-09 09:30] VITALS: BP 112/80; PULSE 75; RESP 16; TEMP 36.5; O2SAT 97
== END 2021-11-09 09:35 | disposition home or self-care (01) ==
PROVIDERS: PCP Student in an Organized Health Care Education/Training Program; Visit Provider Ophthalmology
PROC: (CPT 66984; principal; 2021-11-09 08:30)
DX: H25.042 Posterior subcapsular polar age-related cataract, left eye (principal)
CPT/HCPCS: 66984; V2632

== ENCOUNTER → 2021-11-23 00:15 | Outpatient (CLI) | payer MEDICAID, SELFPAY | PROVIDERS: PCP Student in an Organized Health Care Education/Training Program; Visit Provider Obstetrics & Gynecology ==

== ENCOUNTER 2021-11-30 03:11 | Outpatient (CLI) | payer MEDICAID, SELFPAY ==
[2021-11-30 09:16] LABS: ALT 26 U/L (14-59); AST 23 U/L (15-37); Albumin 3.9 g/dL (3.4-5.0); Alkaline Phosphatase 58 U/L (46-116); BUN 17 mg/dL (7-18); Bilirubin, Total 0.5 mg/dL (0.2-1.0); CREATININE 0.9 mg/dL (0.55-1.02); Calcium 8.7 mg/dL (8.5-10.1); Calculated LDL 148 mg/dL (<100); Chloride 104 mmol/L (98-107); Cholesterol 230 mg/dL (<200); Glucose 80 mg/dL (74-106); HDL Cholesterol 66 mg/dL (40-60); Potassium 4.3 mmol/L (3.5-5.1); Sodium 139 mmol/L (136-145); TSH (W/Ref FT4) 3.46 uIU/mL (0.36-3.74); Triglyceride 80 mg/dL (<150)
== END 2021-11-30 03:12 | disposition home or self-care (01) ==
LOC: LBO 03:11
PROVIDERS: PCP Student in an Organized Health Care Education/Training Program; Visit Provider Student in an Organized Health Care Education/Training Program
DX: E07.9 Disorder of thyroid, unspecified (principal); E86.0 Dehydration; N25.89 Other disorders resulting from impaired renal tubular function; Z13.220 Encounter for screening for lipoid disorders
CPT/HCPCS: 36415; 80053; 80061; 84443

== ENCOUNTER → 2022-01-01 18:57 | Outpatient (CLI) | payer MEDICAID, SELFPAY ==
--- NOTE | 2022-01-01 15:00 | DI.RAD_ITS ---
Exam(s) XR TIB/FIB LT EXAM: XR TIB/FIB LT CLINICAL HISTORY: evaluate ankle and knee joints; eval fib rotation S99.172A. TECHNIQUE: 2D digital imaging was performed of the left tibia and fibula. Two images were obtained. AP and lateral views were obtained. COMPARISON: No exams were available for comparison FINDINGS: BONES: No acute fracture is present. No bony destructive lesion is seen. Marked degenerative changes are seen in the knee. Findings of a prior ACL repair are present. Please refer to the x-ray of the knee report performed the same day. The ankle is included on a separate x-ray series performed the day. SOFT TISSUE: Normal. IMPRESSION: No acute abnormality. DATA REPOSITORY: RADIATION DOSE DELIVERED:
--- NOTE | 2022-01-01 15:00 | DI.RAD_ITS ---
Exam(s) XR KNEE LT 3V AP,LAT,RICKEY EXAM: XR KNEE LT 3V AP,LAT,RICKEY CLINICAL HISTORY: evaluate ankle and knee joints; eval fib rotation S99.912A INJURY. TECHNIQUE: 2D digital imaging was performed of the left knee. Three images were obtained. AP, late ral and PA tunnel views were obtained. COMPARISON: No previous for comparison. FINDINGS: BONES: No acute fracture is present. No bony destructive lesion is seen. There are findings of a griselda or ACL repair. JOINTS: There are marked degenerative changes of the left knee with joint space narrowing, subchondra l sclerosis and periarticular spurring. Subchondral cysts are also present. The findings are most m arked in the medial femoral tibial and patellofemoral joints. There is flattening of the articular s urfaces in the medial femoral tibial joint. There is a moderate joint effusion. SOFT TISSUE: Normal. IMPRESSION: Marked osteoarthritis of the left knee. DATA REPOSITORY: RADIATION DOSE DELIVERED:
--- NOTE | 2022-01-01 15:00 | DI.RAD_ITS ---
Exam(s) XR ANKLE LT COMPLETE EXAM: XR ANKLE LT COMPLETE CLINICAL HISTORY: evaluate ankle and knee joints; eval fib rotation S99.542A TECHNIQUE: 2D digital imaging was performed of the left ankle. Three images were obtained. AP, lat eral and oblique views were obtained. COMPARISON: No exams were available for comparison FINDINGS: BONES: No acute fracture is present. No bony destructive lesion is seen. JOINTS:The ankle mortise is normally aligned. SOFT TISSUE: Atherosclerosis. IMPRESSION: No acute abnormality. DATA REPOSITORY: RADIATION DOSE DELIVERED:
== END ==
PROVIDERS: PCP Student in an Organized Health Care Education/Training Program; Visit Provider Student in an Organized Health Care Education/Training Program
DX: M17.12 Unilateral primary osteoarthritis, left knee
CPT/HCPCS: 73562; 73590; 73610

== ENCOUNTER → 2022-02-05 01:26 | Outpatient (CLI) | payer MEDICAID, SELFPAY ==
--- NOTE | 2022-02-05 13:45 | DI.MRI_ITS ---
Exam(s) MR LOWER JOINT LT WO EXAM: MR LOWER JOINT LT WO CLINICAL HISTORY: LT ANKLE PAIN, INJURY, M25.572,S99.942A TECHNIQUE: Multiplanar multisequence MRI was performed without intravenous contrast. COMPARISON: CR XR ANKLE LT COMPLETE from 01/01/2022 FINDINGS: BONES/JOINTS: No fracture or contusion pattern. No bone lesions identified. The talar dome is smooth. The ankle mortise is maintained. No joint effusion is present. Mild subchondral degenerative signal seen at the tarsal joints, particularly at the articulation between the navicular and the medial and middle cuneiform is.. LIGAMENTS: The tibiofibular and calcaneofibular ligaments are intact. The talofibular ligaments are i ntact. The deltoid ligament is intact. The syndesmosis is unremarkable. Sinus tarsi is normal. MUSCULOTENDINOUS STRUCTURES: Achilles tendon: Unremarkable. Plantar fascia: Unremarkable. Anterior Extensor tendons: Unremarkable. Posterior Tibialis: Unremarkable. Flexor Digitorum longus: Unremarkable. Flexor Hallucis longus: Unremarkable. Peroneus longus: Unremarkable. Peroneus brevis:Unremarkable. SOFT TISSUES: There is a small amount of fluid seen posterior to the talus. There is also small flui d collection lateral to the talonavicular joint. OTHER FINDINGS: None. IMPRESSION: 1. No evidence of a tendon or ligament tear. 2. Mild degenerative signal seen in the medial tarsal bones. No evidence of a fracture. DATA REPOSITORY:
== END ==
PROVIDERS: PCP Student in an Organized Health Care Education/Training Program; Visit Provider Student in an Organized Health Care Education/Training Program
DX: M25.572 Pain in left ankle and joints of left foot (principal)
CPT/HCPCS: 73721

== ENCOUNTER 2022-08-16 19:06 | Outpatient (REF) | payer MEDICAID, SELFPAY ==
[2022-08-16 13:30] LABS: ALT 40 U/L (14-59); AST 27 U/L (15-37); Albumin 3.7 g/dL (3.4-5.0); Alkaline Phosphatase 68 U/L (46-116); Anion Gap 7.9 mmol/L (3-11); BUN 13 mg/dL (7-18); Bilirubin, Total 0.2 mg/dL (0.2-1.0); CO2 27.1 mmol/L (21.0-32.0); CREATININE 0.9 mg/dL (0.55-1.02); Calcium 8.9 mg/dL (8.5-10.1); Chloride 105 mmol/L (98-107); Estimated GFR 75.03 (mL/min/1.73m2); Glucose 122 mg/dL (74-106); Potassium 4.1 mmol/L (3.5-5.1); Sodium 140 mmol/L (136-145); Total Protein 6.4 g/dL (6.4-8.2)
[2022-08-16 13:41] LABS: Bilirubin Negative (Negative); Blood Negative (Negative); Clarity Clear (Clear); Glucose Negative (Negative); Ketones Negative (Negative); Leukocyte Esterase Negative (Negative); Nitrite Negative (Negative); Urobilinogen 0.2 mg/dL (Up to 0.2); pH 6.5 (5-8)
== END 2022-08-16 19:07 | disposition home or self-care (01) ==
LOC: LBN 19:06
PROVIDERS: PCP Student in an Organized Health Care Education/Training Program; Visit Provider Nurse Practitioner Family
DX: N39.0 Urinary tract infection, site not specified (principal); R10.31 Right lower quadrant pain; R35.0 Frequency of micturition; R30.0 Dysuria; Z87.440 Personal history of urinary (tract) infections
CPT/HCPCS: 80053; 81003

== ENCOUNTER 2022-12-20 01:27 | Outpatient (CLI) | payer MEDICAID, SELFPAY ==
[2022-12-20 11:11] LABS: HCT 43.2 % (36.0-46.0); HGB 14.7 g/dL (11.2-15.7); MCH 30.5 pg (27.0-33.0); MCV 90 fL (80-95); MPV 10.4 fL (8.0-11.0); Platelet Count 201 10^3/uL (130-400); RBC 4.82 10^6/uL (3.93-5.22); RDW-SD 42.5 fL; WBC 6.89 10^3/uL (4.4-10.8)
[2022-12-20 11:33] LABS: Anion Gap 3.9 mmol/L (3-11); BUN 11 mg/dL (7-18); CO2 30.1 mmol/L (21.0-32.0); CREATININE 0.9 mg/dL (0.55-1.02); Calcium 9.2 mg/dL (8.5-10.1); Chloride 107 mmol/L (98-107); Estimated GFR 74.57 (mL/min/1.73m2); Glucose 100 mg/dL (74-106); Potassium 4.3 mmol/L (3.5-5.1); Sodium 141 mmol/L (136-145)
[2022-12-20 11:48] LABS: TSH (W/Ref FT4) 1.84 uIU/mL (0.36-3.74)
== END 2022-12-20 01:28 | disposition home or self-care (01) ==
LOC: LBO 01:28
PROVIDERS: PCP Student in an Organized Health Care Education/Training Program; Visit Provider Student in an Organized Health Care Education/Training Program
DX: M25.562 Pain in left knee (principal); M17.12 Unilateral primary osteoarthritis, left knee; E07.9 Disorder of thyroid, unspecified; N95.1 Menopausal and female climacteric states; R79.89 Other specified abnormal findings of blood chemistry; Z01.818 Encounter for other preprocedural examination; Z01.812 Encounter for preprocedural laboratory examination
CPT/HCPCS: 36415; 80048; 85027; 84443

== ENCOUNTER 2022-12-20 10:07 | Outpatient (CLI) | payer MEDICAID, SELFPAY ==
--- NOTE | 2022-12-20 09:45 | DI.RAD_ITS ---
Exam(s) XR KNEE LT 1V XR STANDING ALIGNMENT EXAM: XR STANDING ALIGNMENT CLINICAL HISTORY: PRE OP L TKA. TECHNIQUE: 2D digital imaging was performed. Standing AP views were performed from the pelvis throu gh the ankles. Lateral view left knee COMPARISON: CR XR ANKLE LT COMPLETE from 01/01/2022 CR XR TIB/FIB LT from 01/01/2022 CR XR KNEE LT 3V AP,LAT,RICKEY from 01/01/2022 CR XR KNEE LT 1V from 12/20/2022 FINDINGS: BONES: No acute fracture is present. No bony destructive lesion is seen. Screws in distal femur and proximal tibia related to prior ACL repair. Leg length discrepancy: None JOINTS: Knees: Left knee: Prior ACL repair. End-stage degenerative changes of the medial femoral tib ial joint with a [id number] appearance, prominent spurring, sclerosis and subchondral cyst formatio n. Varus angulation. Severe degenerative changes also present at the lateral femoral tibial joint a nd patellofemoral joint. Small joint effusion. Anterior loose body. Right knee: Moderate degenerat julianna changes of the medial femoral tibial joint. Prior ACL repair. The ankle joints are unremarkable. Hips: Right hip prosthesis, unchanged. Left hip shows minimal acetabular spurring. SOFT TISSUE: Vascular calcifications. IMPRESSION: Severe degenerative changes the left knee.. No significant leg length discrepancy. DATA REPOSITORY: RADIATION DOSE DELIVERED:
== END 2022-12-20 10:08 | disposition home or self-care (01) ==
LOC: DIORS 10:07
PROVIDERS: PCP Family Medicine; Referring Provider Family Medicine; Visit Provider Physician Assistant
DX: M25.562 Pain in left knee (principal); M17.12 Unilateral primary osteoarthritis, left knee; Z98.890 Other specified postprocedural states; M25.462 Effusion, left knee
CPT/HCPCS: 73560; 77073

== ENCOUNTER 2022-12-24 09:56 | Day surgery (SDC) | payer MEDICAID, SELFPAY ==
[2022-12-24] VITALS (13 sets, daily range): BP systolic 112–133; BP diastolic 65–90; PULSE 64–84; RESP 10–19; TEMP 36.3–36.7; O2SAT 95–100; BMI 24.0
--- NOTE | 2022-12-24 10:29 | W.ANESPRE ---
General Info Date of Service Date Performed: 12/24/22 Height: 5 ft 11 in Weight: 78.018 kg Body Mass Index (BMI): 24.0 Surgical Procedure: Operation Date: 12/24/22 13:40 Proposed Procedure Side Surgeon p Knee Total Arthroplasty w/OrthAlign, Cementless PS Left Tj Tyler MD Meds Allergies and Home Medications Allergies Allergy/AdvReac Type Severity Reaction Status Date / Time bee venom protein (honey bee) Allergy Severe ANAPHYLAXIS-yellow Verified 12/24/22 10:17 jacket/hornet Latex, Natural Rubber AdvReac Intermediate blister/marcy Verified 12/24/22 10:17 h codeine AdvReac Nausea, Verified 12/24/22 10:17 vomiting, rash oxycodone AdvReac Nausea, Verified 12/24/22 10:17 vomiting, DAMICO Home Medication Medication Instructions Recorded acetaminophen 500 mg capsule 1,000 mg PO Q8H PRN PRN #90 caps 07/31/21 celecoxib 200 mg capsule (Celebrex) 200 mg PO BID #180 caps 10/05/21 magnesium glycinate 100 mg tablet 200 mg PO BID 11/08/21 levothyroxine 100 mcg tablet 100 mcg PO DAILY #90 tabs 01/04/22 ketamine 100 mg sublingual yumiko 200 mg sublingual .COMPLEX 12/20/22 Current Visit Medications: Current Medications Generic Name Dose Route Start Last Admin Trade Name Freq PRN Reason Stop Dose Admin Acetaminophen 1,000 mg 12/24/22 06:00 Acetaminophen 500 Mg Tab PO 12/24/22 16:00 PREOP CELIA Acetaminophen 1,000 mg 12/24/22 08:30 Acetaminophen 500 Mg Tab PO 01/23/23 08:29 TID CELIA Celecoxib 400 mg 12/24/22 06:00 Celecoxib 200 Mg Cap PO 12/24/22 16:00 PREOP CELIA Gabapentin 300 mg 12/24/22 06:00 Gabapentin 300 Mg Cap PO 12/24/22 16:00 PREOP CELIA Hydromorphone HCl 0.5 mg 12/24/22 07:29 Hydromorphone 2 Mg/Ml Syr IVP 01/23/23 07:28 Q2H PRN PRN Tranexamic Acid 1,000 mg/ 60 mls @ 360 mls/hr 12/24/22 06:00 Sodium Chloride IVPB 12/24/22 16:00 PREOP CELIA Ringer's Solution 1,000 mls @ 80 mls/hr 12/24/22 06:00 IV 01/22/23 23:59 INFUSION CELIA Cefazolin Sodium/Dextrose 2 gm in 50 mls @ 100 mls/hr 12/24/22 06:00 Ancef Duplex IVPB 01/22/23 23:59 PREOP CELIA Cefazolin Sodium/Dextrose 1 gm in 50 mls @ 100 mls/hr 12/24/22 08:00 Ancef Duplex IVPB 12/25/22 00:29 Q8H CELIA IV Miscellaneous Supplies 1 each 12/24/22 06:00 Iv Access IV 01/22/23 23:59 DIRECTED CELIA Ondansetron HCl 4 mg 12/24/22 07:29 Ondansetron 4 Mg/2 Ml Vial IVP 01/23/23 07:28 Q6H PRN PRN Nausea Sodium Chloride 0 ml 12/24/22 06:00 Normal Saline Flush 10 Ml Syr IV 01/22/23 23:59 PRN PRN Sodium Chloride 0 ml 12/24/22 06:00 Normal Saline 10 Ml Vial IJ 01/22/23 23:59 DIRECTED PRN Sterile Water 0 ml 12/24/22 06:00 Water,Injection,Sterile 10 Ml Vial IJ 01/22/23 23:59 DIRECTED PRN PFSH Active Problems Active Problems: Problem Status Onset Code Primary osteoarthritis of left hip M16.12 Left knee DJD M17.12 Mass of soft tissue of lower leg M79.89 Pain and swelling of left knee M25.562, M25.462 Elevated TSH R79.89 Left ankle injury S99.912A Posterior subcapsular age-related cataract of left eye H25.042 Cortical cataract of left eye H26.9 Menopausal symptoms N95.1 Family history of bleeding or clotting disorder Z83.2 At risk for osteoporosis Z91.89 Snoring R06.83 Stressful life event affecting family Z63.79 Hx of postmenopausal hormone replacement therapy Z92.29 Arthritis M19.90 Thyroid disease E07.9 History of chronic back pain Z87.39 Skin lesions L98.9 Hx of renal calculi Z87.442 Caregiver stress Z63.6 History of cirrhosis of liver Z87.19 Hx of Lyme disease Z86.19 Hx of temporomandibular joint disorder Z87.39 Hx of tinnitus Z86.69 Medical History Medical History Alcoholic cirrhosis of liver Quit alcohol: 2014 Bilateral kidney stones Current stones 2014; History of stent placement - followed by removal of stents Fibromyalgia Reports developing response following hysterectomy - not official diagnosis Ischial bursitis of right side Resolved s/p hip replacement Medical History Comments:: daily marijuana - reports mostly tincture; reports smokes rarely Surgical History Surgical History H/O hand surgery microsurgery 2014 RMF reattachment 1972 History of cholecystectomy 2010 History of total right hip replacement (07/31/21) Dr. Tyler Nuclear sclerotic cataract of left eye Plantar fasciitis of right foot (2011) fascial release 2014 Rupture of anterior cruciate ligament of both knees (~05/2001) Status post arthroscopy of left knee (1996) medial mensicus Status post arthroscopy of right knee (1997) medial mensicus Status post cholecystectomy (2008) Status post hysterectomy with oophorectomy (2009) ~5 years of hormonal issues that were managed by rheumatology Status post repair of medial collateral ligament (~05/2001) Status post tubal ligation (1988) Tobacco Smoking/Tobacco Use Status: Never Passive smoking exposure: Yes Alcohol Alcohol Intake: former Substance Use Substance use: Daily Substance use type: marijuana Details: daily marijuana Prental History History 0 Para Hx # Term Pregnancies Multiple births Hx # Pregnancies Ectopic pregnancies AB induced Hx Number of Living Children AB spontaneous Vital Signs and Lab Results Vital Signs Most Recent Vital Signs in EMR: Temp Pulse Resp BP Pulse Ox 36.3 C L 66 16 121/90 98 12/24/22 10:29 12/24/22 10:29 12/24/22 10:29 12/24/22 10:29 12/24/22 10:29 Lab Results Blood Type / Crossmatch: No Data to Display Complete Blood Count: White Blood Count 6.89 10^3/uL (4.4-10.8) 12/20/22 11:05 Red Blood Count 4.82 10^6/uL (3.93-5.22) 12/20/22 11:05 Hemoglobin 14.7 g/dL (11.2-15.7) 12/20/22 11:05 Hematocrit 43.2 % (36.0-46.0) 12/20/22 11:05 Platelet Count 201 10^3/uL (130-400) 12/20/22 11:05 Complete Metabolic Panel: Sodium 141 mmol/L (136-145) 12/20/22 11:05 Potassium 4.3 mmol/L (3.5-5.1) 12/20/22 11:05 Chloride 107 mmol/L (98-107) 12/20/22 11:05 Carbon Dioxide 30.1 mmol/L (21.0-32.0) 12/20/22 11:05 BUN 11 mg/dL (7-18) 12/20/22 11:05 Creatinine 0.9 mg/dL (0.55-1.02) 12/20/22 11:05 Est GFR (CKD-EPI 2020) 74.57 (mL/min/1.73m2) 12/20/22 11:05 Calcium 9.2 mg/dL (8.5-10.1) 12/20/22 11:05 Glucose 100 mg/dL (74-106) 12/20/22 11:05 Liver Function Panel: No Data to Display Coagulation Panel: No Data to Display Cardiac Panel: No Data to Display Arterial Blood Gas: No Data to Display Venous Blood Gas: No Data to Display Pancreas Panel: No Data to Display Thyroid Panel: Thyroid Stimulating Hormone (TSH) 1.84 uIU/mL (0.36-3.74) 12/20/22 11:05 Infectious Disease: No Data to Display Blood Cultures: No Data to Display Toxicology Panel: No Data to Display Imaging and Studies Imaging and Studies Study information below may be from another EMR and interpreted by another provider. Please see original notes in EMR for more complete details. EKG Summary: 09/21: sinus tach. Anesthesia Assessment and Plan Anesthesia History Personal History: No History of Anesthesia Complications Family History: No Family History of Anesthesia Complications Exercise Tolerance Exercise Tolerance: Metabolic Equivalents>4 Cardiac & Pulmonary Exam Cardiac Exam: Normal S1/S2 Heart Sounds Pulmonary Exam: Clear Bilateral Breath Sounds Implantable Cardiac Device Does patient have a Pacemaker or an ICD?: No Airway Exam Known Difficult Airway: No Mallampati Class: 1 Mouth Opening: Normal (> 3cm) Thyromental Distance: Greater than 3 cm Neck Range of Motion: Full ROM Neck Circumference: Normal Teeth Condition: Normal Dentition ASA Classification ASA Score: ASA 2 Emergency Case?: No NPO Status NPO Status: NPO Clears >2 hours, Solids >8 hours Anesthesia Plan Resuscitation Status: Full Code Anesthesia Technique: Spinal Anesthesia Airway Planned: Natural Airway Pain Management: Surgeon and patient request nerve block Monitors Used: Standard Monitors Preoperative Comments:: 57 yo female TKA. Sig PMHx: fibro, knee pain (ketamine for depression and pain), cirrhosis (no issues), never smoker, daily cannabis, hypothyroid (levothyroxine) Previous Anes: - DRE, midaz, spinal, prop sedation, natural airway, no issues.
[2022-12-24] MEDS: Gabapentin 300 MG CAP PO (10:45)
[2022-12-24] MEDS: Acetaminophen 500 MG TAB 1000 MG PO (10:46)
[2022-12-24] MEDS: Celecoxib 200 MG CAP 400 MG PO (10:47)
[2022-12-24] MEDS: Lactated Ringers 1,000 ML 80 ML IV (11:20)
--- NOTE | 2022-12-24 11:32 | ANES.NERVE_ITS ---
Nerve Block Single Injection Procedure Date and Time Date Performed: 12/24/22 Procedure Start: 11:20 Location Where Procedure Performed Procedure Location: Day Surgery Unit Reason Performed: Postoperative Analgesia Requesting Provider: Tj Tyler Timeout Performed Timeout Performed: Yes Monitoring Used ECG, Blood Pressure and SpO2 Sterility Sterility: Hand Hygiene, Surgical Cap, Surgical Mask, Sterile Gloves and Chlorhexidine Sedation Given During Procedure Sedation Given (Indicate Dose Given): Versed IV Dose:: 2 mg and Ketamine IV Dose:: 15 mg Patient Mental Status Patient Mental Status: Sedate with meaningful communication Nerve Block 1st Nerve Block: Laterality: Left Block Type: Adductor Canal Ultrasound Image Saved?: Yes Needle / Catheter Used: 100mm SonoPlex II Local Anesthetic Bolus (Indicate Dose Given): Lidocaine used for local infiltration of skin and Bupivacaine 0.375% Dose:: 12 mL Additives (Indicate Dose Given): None Ultrasound: Sterile probe cover and gel used Nerve Stimulator: Supplement to Ultrasound use and No twitch or para sthesia noted < 0.5 mA Paresthesia: None Procedure Tolerated: No Complications Procedure Outcome: Successful Performed By: Chinmay Huntley
[2022-12-24] MEDS: ceFAZolin 2 GM/50 ML BAG IVPB (12:04)
[2022-12-24] MEDS: Normal Saline 10 ML VIAL IJ (14:30)
[2022-12-24] MEDS: HYDROmorphone 2 MG/ML SYR IVP ×3 (14:30→15:02)
--- NOTE | 2022-12-24 14:42 | ROE_ITS ---
Date of service: 12/24/22 Time of Service: 14:00 Operative Note Operative Note DATE OF PROCEDURE: 12/24/22 PRE-OP DIAGNOSIS: Post-Traumatic Left Knee Osteoarthritis POST-OP DIAGNOSIS: same PROCEDURE: Left Total Knee Replacement with Intraoperative Navigation SURGEON: Tj Tyler [employer]Y FARM MANAGER: Bridgette Parmar ANESTHESIA TYPE: Spinal Refer to Anesthesia Record ESTIMATED BLOOD LOSS: 150 PATHOLOGY: none sent TOURNIQUET TIME: 0 COMPLICATIONS: None Patient was transported to: PACU Patient's condition: stable Implants: 1. Depuy Attune Cementless Posterior Stabilized Femoral Component, Size 8 2. Depuy Attune Cementless Fixed Bearing Tibial Component, Size 7 3. Depuy Attune 8x5 PS/FB Poly 4. Depuy Attune Patellar Component, Size 38 Indications: I have seen Mariola in clinic for symptoms of LEFT knee arthritis, confirmed with radiographic findings. Mariola has exhausted nonoperative methods and was having significant limitations in daily function and desired better function and less pain. I discussed the technical details of a knee replacement. I explained the risks of the procedure to include, but not limited to, bleeding, infection, pain, stiffness, fracture, damage to nerves and vessels, damage to muscles and tendons, loosening, need for repeat procedure, blood clot and cardiopulmonary demise. Despite these risks, she elected to proceed. Findings: There was significant signs of arthritis throughout the knee with deformity of the medial tibia. Previous screw from ACL reconstruction was removed. Procedure Description: Mariola was greeted in the preoperative holding area where the correct side was identified and marked. The consent was reviewed with the patient and signed. The history and physical was updated. All questions were answered. Preoperative mediacations were administered: Acetaminophen 1000mg, Celebrex 400mg, and Gabapentin 300mg. An adductor canal block was then administered by the anesthesia team in the P ACU. Mariola was taken back to the operating room. A spinal anesthestic was then administered. The patient was placed into the supine position on the operating room table. A nonsterile tourniquet was placed high onto the leg. Posts were placed for positioning during the procedure. All bony prominences were well padded. Prophylactic antibiotics in the form of Cefazolin were administered. 1g of Tranxemic Acid was given intravenously within 30 minutes of incision. The left leg was then prepped with Chloraprep and draped in a standard fashion with impervious stockinette. A second prep with Chloraprep was performed prior to application of Iodine impregnated skin protection. A timeout to confirm correct identity, side and site, procedure, allergies, anesthesia, and medical concerns was performed. With the knee in some flexion, a midline incision was made overlying the knee. Full thickness skin flaps were raised once the extensor mechanism was encountered. These were raised medially and laterally. Any bleeding was controlled with electrocautery. Once the extensor mechanism was fully exposed, a medial parapatellar arthrotomy was performed in a flexed position. All bleeding from the arthrotomy and the geniculate arteries was coagulated. A medial subperiosteal peel was performed with electrocautery to the midcoronal plane. Due to the significant varus deformity the entire medial tibial plateau was exposed. The fat pad was removed while keeping the patellar tendon protected. The anterior distal femur synovium was removed for later visualization. The ACL and PCL were resected and the anterior horn of the lateral meniscus was transected. The knee was then flexed with the patella everted. Large osteophytes from the tibia were removed. Large osteophytes from the femur were removed. A single starting pin was then placed 1cm anterior to the PCL insertion and the notch in the direction of the femoral head. The OrthoAlign device was applied over the pin. It was oriented to be in line with the epicondylar axis and the trochlear groove. It was then pinned into place. The navigation computer was then turned on and calibrated. The distal femur cut was set at 0 degrees varus/valgus and 3.5 degrees flexion. The distal femur cutting guide then was positioned for a 9mm cut. The distal femur was cut with an oscillating saw while protecting the soft tissues. The tibia was then addressed. The OrthoAlign device was placed over the tibial tubercle and medial tibia and secured into position. Once again, OrthoAlign was calibrated and then set for a 2 degree varus cut and 4 degrees of posterior slope. With this locked into position, the cut thickness stylus was used to assess cut thickness. The medial side, most involved side, was set for a 1mm cut. This was then held in position and pinned into place with 2 additional pins and a cross pin for stability. The medial and lateral collateral ligaments were protected and the cut was performed. The cut was taken around the screw. In order to get the screw out, I then removed the bone from around the screw and removed the screw with a pair of needle-nose vices. I then recut the tibial surface. With this completed, it was assessed and noted to be of appropriate dimensions. The guide and OrthoAlign was removed. A spacer block was inserted and the knee was brought into extension to ensure enough space was present. The femur was then sized as a size 8. The Orthoalign gap balancing device was then placed in extension. This was used to ensure that the ligaments were properly balanced with up to 2 to 3 mm laxity laterally compared medially. The extension gap was measured as 17mm. The knee was then brought into 90 degrees of flexion and the ligament foam cutting supervisor was once again placed. Under the same amount of force the flexion gap was measured. The attending specific jig was placed and the flexion gap was made to match the extension gap. The 4-in-1 cutting guide was the placed. An meme wing was used to confirm appropriate position of the anterior cut to avoid notching. This cutting guide was ensured to be flush on the cut surface and then pinned into place with hea ded pins. While protecting the soft tissues, quad tendon, and collateral ligaments, the anterior and posterior cuts were performed with a saw. The central two pins were removed and the posterior and anterior chamfers were cut next. The notch-cutting guide was placed. This was pinned to lateralize the femoral component as much as possible while keeping it flush on the cut surface. This was then pinned into position. A saw was used to make the notch cut. A rasp smoothed the cut surfaces. The medial and lateral menisci were removed. A trial femoral component was then inserted, impacted down to the cut surfaces, and the lug holes were drilled. A provisional trial tibial component was placed and the knee was brought through range of motion. There was noted to be excellent extension and flexion. There was no significant instability. The patella was tracking without thumbs. A size 5mm polyethylene component provided the best range of motion and stability with less than 2mm gapping with medial and lateral stress and full extension without significant hyperextension. The tibial cut surface was fully exposed. The tibia was then sized as a 7. The tibia had been previously marked during trialing to correspond to the center of the tibial component to help with rotation. The trial was aligned to this jesse, approximately rotated to the medial 1/3rd of the tibial tubercle. The trial was pinned into place. The tibia was prepared with a reamer and a keel punch and lug holes. The knee was then brought into extension and the patella was measured as 31mm. Using the patellar clamp and cut guide, this was resected to a flat surface with at least 13mm of thickness remaining. The size 38 patella fit the best. This was oriented and then clamped into position. The lugs were drilled. The trial components were removed. The final components were opened on the back table. The periosteal and capsular tissues, especially posteriorly, around the knee were then systematically injected with a periarticular cocktail consisting of 246mg of Ropivacaine, 0.5mg of Epinephrine, 0.08mg of Clonidine, and 30mg of Ketorolac, diluted to 100cc. On the back table, with the implants opened, the cement was mixed. One batch of high viscosity cement was prepared with vacuum assistance. After the cement was ready a small amount was placed on the cut surface of the patella and the patellar button was clamped into position and held. While the cement was hardening, the cementless knee components were placed. Starting with the tibial component, the tibia was subluxed anteriorly and the lug holes of the component were lined up. The tibia was then impacted with an impactor and mallet until the tibial component was in contact with the tibia. Then, the femoral component was inserted. The lug holes were aligned and the component was impacted into position. The final polyethylene component was inserted. The knee was irrigated with Surgiphor Betadine solution. This was allowed to sit in the knee for 3 minutes and then it was thoroughly irrigated out with saline. After the cement had finally cured, approximately 15min, the clamp was removed from the patella and the knee was taken through range of motion. The patella was tracking with a no-thumbs technique. The capsule was then reapproximated with a No. 1 Vicryl at multiple locations. The capsule was finally closed with a No. 2 Stratafix, barbed suture. Deep tissues were then reapproximated with 0 Vicryl and 2-0 Vicryl. The skin was closed with a running 3-0 Monocryl in a subcuticular fashion. This was reinforced with skin glue. A Mepilex silver dressing was applied along with a [id number] HO wrap. A CryoCuff was applied. Mariola was transferred to the hospital bed without difficulty an suffering no apparent complication. Mariola has a good prognosis. Physical therapy will start today and without restrictions, weight-bearing as tolerated. Aspirin 81mg BID will be used for DVT prophylaxis.
--- NOTE | 2022-12-24 15:12 | W.PM.DS.N ---
Date of service: 12/24/22 Time of Service: 14:28 DS: Diagnosis Discharge Diagnosis (1) Left knee DJD: Status: Acute Discharge Plan Disposition Patient Disposition: Home Condition: Good Discharge Details Reason For Visit: Left knee DJD Attending Provider: Tj Tyler Primary Care Provider: Gopal Nunez Home Meds and New Rx's Prescriptions: New celecoxib [Celebrex] 200 mg capsule 200 mg PO BID PRNQty: 60 0RF Rx Instructions: Take one tablet twice daily for pain and inflammation aspirin 81 mg tablet,delayed release (DR/EC) 81 mg PO BID 30 Days Qty: 60 0RF acetaminophen 500 mg tablet 1,000 mg PO Q8H PRN Qty: 90 0RF Rx Instructions: Take two tablets up to every 8 hours as needed for pain dexamethasone 4 mg tablet 4 mg PO DAILY Qty: 2 0RF Rx Instructions: Take one tablet once daily for two days docusate sodium [Colace] 100 mg capsule 100 mg PO BID Qty: 30 0RF gabapentin 300 mg capsule 300 mg PO QHS Qty: 14 0RF Rx Instructions: Take one tablet at bedtime hydromorphone 4 mg tablet 4 mg PO .[id number] PRN (Reason: severe postoperative pain) Qty: 18 0RF Rx Instructions: Take one tablet up to every 4-6 hours as needed for severe postoperative pain pantoprazole 40 mg tablet,delayed release (DR/EC) 40 mg PO DAILY Qty: 14 0RF Continued ketamine 100 mg yumiko 200 mg sublingual .COMPLEX Rx Instructions: 200 mg sublingually twice per week; magnesium glycinate 100 mg tablet 200 mg PO BID Rx Instructions: for leg cramps/bowel regularity levothyroxine 100 mcg tablet 100 mcg PO DAILY Qty: 90 1RF Rx Instructions: Start approx 02/06/22, after taper up with 25mcg tabs .. BEFORE FOOD Discontinued celecoxib [Celebrex] 200 mg capsule 200 mg PO BID Qty: 180 3RF acetaminophen 500 mg capsule 1,000 mg PO Q8H PRN PRNQty: 90 0RF Discharge Instructions Additional Instructions: Total Knee Discharge Instructions Activity: The most important activity is to walk and to work on gentle motion (both flexion and extension). You should try to take short walks a few times a day. It is important that when resting you work on keeping the knee straight. Avoid putting a pillow behind the knee as this will encourage flexion. Work on range of motion exercises as provided by Physical Therapy. - Start outpatient physical therapy within 2 weeks. - You should wear the MIKE hose on both legs for 2 weeks. You may remove these at night. You may also use any compression sock in place of the MIKE hose. - Utilize [employer] to review exercises, see videos on exercises and obtain basic information pertaining to your surgery and your recovery. Dressing: Remove the Juan Ramon wrap by 2 days after your surgery and put on the MIKE stocking given to you from the hospital. Keep the surgical dressing (underneath the JUAN RAMON wrap) in place for at least one week. After the first week it may be removed and replaced with light gauze and tape or nothing. The wound and dressing may get wet after 3 days but avoid soaking the dressing or otherwise it will need to be changed. Many people prefer covering the dressing with cling wrap (saran wrap) to minimize it from getting soaked. If it gets wet, just pat dry. If it starts to peel off then it will need to be changed. Medications: - You should take Tylenol and anti-inflammatory Celebrex as your primary pain control medications. If the Celebrex is too expensive or not covered, please call the office for another alternative (Advil/Ibuprofen or Naproxen/Aleve) - You have been prescribed a stronger pain medication Hydromorphone for breakthrough pain, take as needed as prescribed. - You have also been prescribed a stomach acid reduction agent Pantoprozole to help reduce stomach acid and reflux. - You have been prescribed Gabapentin to take at night for restlessness and nerve pain. - You will be taking Aspirin 81mg twice a day for DVT prevention unless instructed otherwise. - You have also been prescribed Decadron to take to control post-operative nausea and pain. You will start this tomorrow. - If you have constipation you should take Colace (which has been prescribed) or Miralax (which is available [id number]). It takes most people 3-4 days to have a bowel movement. Follow-up: 2 weeks If you have any acute concerns or questions, please do not hesitate to contact the office at [phone]. You may contact Dr. Tyler with any questions after hours through the hospital at [phone] or on his cell phone at [phone]. Stand Alone Forms: Anesthesia Discharge Inst., Amalia.Nerve Block Instructions, Mayur Gibbs ([facility]) Referrals: Tj Tyler MD [ [facility] STAFF PHYSICIAN] - 01/06/23 1:15 pm Equipment/Supplies: Walker Activity:: Elevate Remove Dressings/Wound Care:: Do Not Remove Shower/Bathe:: Cover Diet:: As Tolerated Discharge Orders Discharge Orders: Discharge Order (Routine); Ordered 12/24/22 Ordered By: Tj Tyler Discharge Data Discharge Date/Time-TO BE ENTERED AT DEPARTURE: 12/24/22 17:13 DS: Summary Time Spent with Patient providing and/or coordinating discharge services: Less than 30 minutes Status at Discharge Functional status at discharge: uses cane/walker Overall status at discharge: patient is progressing back to baseline Mental Status: mental status grossly normal Speech and Movement: speech and movement normal Mood: congruent mood Affect: normal affect Exam Psych Mental Status: mental status grossly normal Speech and Movement: speech and movement normal Mood: congruent mood Affect: normal affect DS: Data Vitals/I&O Vitals and I&O: Vital Signs Temperature 97.3 F L 12/24/22 11:25 Temperature Source Temporal Artery Scan 12/24/22 11:25 Pulse 77 12/24/22 11:25 Pulse Rhythm Regular 12/24/22 10:29 Respiratory Rate 16 12/24/22 11:25 Respiratory Depth Normal 12/24/22 10:29 Blood Pressure 117/76 12/24/22 11:25 Blood Pressure Mean 89 12/24/22 11:25 Blood Pressure Position Supine 12/24/22 11:25 Pulse Oximetry 97 12/24/22 11:25 Oxygen Delivery Method Room Air 12/24/22 11:25 Oxygen Flow Rate 0 12/24/22 11:25 Pain Level 0 12/24/22 11:25 Comment Nakul Mai CRNA performed procedure assisted by Nakul Aguilera RN. No issues. 12/24/22 11:25 Intake & Output 12/23/22 12/24/22 12/24/22 23:59 11:59 23:59 Weight 172 lb PFSH All Active Problems Primary osteoarthritis of left hip (Acute) Left knee DJD (Acute) History of multiple injections Recent Synvisc injection: 02/25/2022 Pain and swelling of left knee (Acute) post horse tether catching ankle injury .. Elevated TSH (Acute) Left ankle injury (Acute) Caught on rope; flipped/dragged by ankle. Menopausal symptoms (Acute) Family history of bleeding or clotting disorder (Acute) At risk for osteoporosis (Acute) Due to prednisone use (local, systemic) for arthritic joint pain. No smoking, no PPI. Mini @ 2009, with HRT @ 2013 (thru 2019?). Snoring (Acute) per , no apparent apneic episodes, but Hx poor sleep @ times Stressful life event affecting family (Acute) Her move here has been difficult, with ex-landlord disposing trailer of personal items and family heirlooms.. Hx of postmenopausal hormone replacement therapy (Acute) Considering re-starting .. need eval and review of med records ([facility], [place], [place]) Arthritis (Chronic) Years of heavy work, including horse training.. Thyroid disease (Acute) per pt report, Rx? Hx 3g? History of chronic back pain (Acute) Hx Prednisone use. Current use Celebrex. Skin lesions (Acute) Long Hx sun exposure; has seen [facility] Derm. Will return to derm for lip lesion. Hx of renal calculi (Acute) Hx stents, s/p ablation, b/l (2013). Hx 6, 8 mm stones. Risk presumed less 2' alcohol abstention. Caregiver stress (Acute) Cared for parents who recently .. does not need active care, but has health issues he is ignoring. History of cirrhosis of liver (Acute) Assoc with alcohol. Recent labs show WNL LFTs. Hx of Lyme disease (Acute) Hx of temporomandibular joint disorder (Acute) Hx of tinnitus (Acute) Medical History Alcoholic cirrhosis of liver Quit alcohol: 2014 Bilateral kidney stones Current stones 2014; History of stent placement - followed by removal of stents Fibromyalgia Reports developing response following hysterectomy - not official diagnosis Ischial bursitis of right side Resolved s/p hip replacement Surgical History H/O hand surgery microsurgery 2014 RMF reattachment 1972 History of cholecystectomy 2010 History of total right hip replacement (07/31/21) Dr. Tyler Nuclear sclerotic cataract of left eye Plantar fasciitis of right foot (2011) fascial release 2014 Rupture of anterior cruciate ligament of both knees (~05/2001) Status post arthroscopy of left knee (1996) medial mensicus Status post arthroscopy of right knee (1997) medial mensicus Status post cholecystectomy (2008) Status post hysterectomy with oophorectomy (2009) ~5 years of hormonal issues that were managed by rheumatology Status post repair of medial collateral ligament (~05/2001) Status post tubal ligation (1988) Social History Smoking/Tobacco Use Status: Never Smoking risk assessment performed?: Yes Alcohol Intake: former Drug use: Daily Substance use type: marijuana Details: daily marijuana Adopted: No Caregiver/Support person: No Foster care: No Household members: spouse Housing: house Number of Children: 0 Communication Needs: None Education Level: college Details: bachelor's degree Do you need help understanding health information?: Never current occupation: Unemployed Pets and animals: Yes Pets and animals: cat(s), dog(s) and horse(s) Sexually active: Yes Do you think of yourself as: straight/heterosexual Current gender identity: female What is your relationship status?: How often do you talk on the phone with friends or family?: decline to answer How often do you get together with friends or relatives?: decline to answer Do you belong to any clubs or organized social groups?: decline to answer Panel score (0-1 are the most socially isolated patients): 1 What type of physical activity do you participate in: none Yarely/Presybeterian: Sikh Seatbelt use: always Helmet use: Yes Helmet use: always Drive intox or ride w/intox truck driver instructor: No Do you feel safe at home: Yes Do you feel safe in your relationship?: Yes History History 0 Para Hx # Term Pregnancies Multiple births Hx # Pregnancies Ectopic pregnancies AB induced Hx Number of Living Children AB spontaneous Time Spent with Patient Time Spent with Patient: <45 minutes Time was spent: ordering medications,tests, procedures, counseling the patient and care coordination
--- NOTE | 2022-12-24 15:26 | W.ANESPOSTOP ---
Postoperative Evaluation Date, Time and Location Date Performed: 12/24/22 Time Performed: 15:21 Patient Location: PACU Vital Signs Most Recent Imported Vital Signs: Most Recent Vital Signs Temp Pulse Resp BP Pulse Ox 36.6 C 84 11 L 121/65 96 12/24/22 15:14 12/24/22 15:14 12/24/22 15:14 12/24/22 15:14 12/24/22 15:14 Pain Score Most Recent Pain Score: Most Recent Pain Score Pain Level 3 12/24/22 15:14 Assessment Mental Status: Awake (Alert & Oriented to Patient Baseline) Airway and Respiratory Function: Patent airway with normal (patient baseline) respiratory exam Cardiovascular Function: Hemodynamically Stable Hydration Status: Adequately Hydrated Nausea & Vomiting: No Nausea or Vomiting Pain: Pain is tolerable per patient Peripheral Nerve Block: Regional nerve block not resolved at time of post operative discharge
[2022-12-24] MEDS: HYDROmorphone 4 MG TAB PO (15:47)
--- NOTE | 2022-12-24 17:13 | IN_ITS ---
Date of service: 12/24/22 Time of Service: 16:15 PT Notes Visit Reasons: Left knee DJD Physical Therapy Day Surgery Initial Evaluation Date: 12/24/2022 Referring Doctor: PEDRO Stewart PT Orders: PT CONSULT: S/P Ortho surgery Precautions: WBAT on left LE with AD. Patient Profile/Admitting Diagnosis: Mariola is a 57-year-old female with degenerative joint disease of the left knee and status post left total knee arthroplasty on postoperative day 0. PMHX: Medical History?(Updated 12/20/22 @ 10:33 by Bridgette Parmar) Alcoholic cirrhosis of liver Quit alcohol: 2015Bilateral kidney stones Current stones 2015; History of stent placement - followed by removal of stents Fibromyalgia Reports developing response following hysterectomy - not official diagnosis Ischial bursitis of right side Resolved s/p hip replacement Surgical History?(Updated 12/20/22 @ 10:32 by Bridgette Parmar) H/O hand surgery microsurgery 2015 RMF reattachment 1972 History of cholecystectomy 2010 History of total right hip replacement (07/31/21) Dr. Tyler Nuclear sclerotic cataract of left eye Plantar fasciitis of right foot (2011) fascial release 2014 Rupture of anterior cruciate ligament of both knees (~05/2001) Status post arthroscopy of left knee (1996) medial mensicus Status post arthroscopy of right knee (1997) medial mensicus Status post cholecystectomy (2008) Status post hysterectomy with oophorectomy (2009) ~5 years of hormonal issues that were managed by rheumatology Status post repair of medial collateral ligament (~05/2001) Status post tubal ligation (1988) Social History/Home Situation: Lives with in a private home with no steps to enter. Independent with all aspects of ADLs prior to surgery although she states that she has not been able to bear weight on her L side due to pain. Equipment Owned/DME: None Subjective: Reports 3?4/10 pain in the left knee at rest and with weightbearing. Complained of increased wooziness when she sat up at edge of bed that worsened with covering 5 steps to reclining chair. Needed to rest in sitting for about 5 minutes before she was ready to move on with mobility assessment. Objective: General Observation: Resting in bed. HO wraps to left LE. Cryocuff to left knee. TEDS to left R leg. Mental Status: Alert and oriented x4 Pain: As above ROM: Right Lower Extremity: Hip flexion WFL. Hip abduction WFL. Knee flexion WFL. Ankle dorsiflexion WFL. Ankle plantarflexion WFL. Left Lower Extremity: Hip flexion WFL. Hip abduction WFL. Knee flexion 10 degrees to 100 degrees. Knee extension -10 degrees. Ankle dorsiflexion WFL. Ankle plantarflexion WFL. Strength: Right Lower Extremity: Hip flexors 5/5. Hip abductors 5/5. Knee flexors 5/5. Knee extensors 5/5. Ankle dorsiflexors 5/5. Ankle plantarflexors 5/5. Left Lower Extremity:Hip flexors 4/5. Hip abductors 4/5. Knee flexors 3-/5. Knee extensors 3-/5. Ankle dorsiflexors 5/5. Ankle plantarflexors 5/5. Sensation: Intact as to pain and light pressure in bilateral lower extremities Bed Mobility/Transfers: Supine to sit standby assist Sit to stand contact-guard assist with FWW Stand to sit standby assist with FWW Bed to chair standby assist with FWW Gait: Tolerated level surface ambulation of 150 feet using front wheeled walker with step through gait pattern requiring only standby assist. Wheelchair follow provided by nurse Gandhi for safety due to report of increased wooziness. No LOB. No SOB. Good quad activation. Balance: Static Sitting: Normal Dynamic Sitting: Normal Static Standing: Fair Dynamic Standing: Fair Special Tests: Mobility Limitations Standardized Measure [facility] AM-PAC 6 clicks Basic Mobility Inpatient Short Form: Raw Score: 23 CMS Score: 11% deficit Informed Consent/Education: Patient instructed in purpose of PT consult. Packet containing TKA exercise protocol has been given to patient. Education and training on initial set of exercises that can be done at home have been completed with patient. Access Code: [email or web address] URL: [email or web address] Date: 12/24/2022 Prepared by: Perlita Card Exercises - Supine Quad Set - 1 x daily - 7 x weekly - 1 sets - 10 reps - 5 hold - Supine Heel Slide - 1 x daily - 7 x weekly - 1 sets - 10 reps - 5 hold - Supine Ankle Pumps - 1 x daily - 7 x weekly - 1 sets - 10 reps - 5 hold - Small Range Straight Leg Raise - 1 x daily - 7 x weekly - 1 sets - 10 reps - 5 hold - Seated March - 1 x daily - 7 x weekly - 1 sets - 10 reps - 5 hold Assessment: Patient requires the use of a front wheeled walker to maximize independence and reduce fall risk. Vital signs remained within normal limits despite report of wooziness in the upright position. Patient presents with clinical signs and symptoms consistent with current/admitting diagnoses that have resulted to mobility limitations, gait instability, generalized weakness, and impairment of motor control as demonstrated by the following impairment level findings: 1. Decreased strength to left knee major muscle groups 2. Impaired standing balance 3. Limitation of joint range of motion in left knee Impairments are contributing to the following functional limitations: 1. Inability to safely ambulate without assistive device 2. Increase completion time for mobility ADL performance 3. Increased fall risk Patient is assessed as a [id number] moderate complexity based on the following: History: 57-year-old female with impairment level findings, functional limitations, and past medical history as indicated above Examination: Demonstrable impairment in strength, balance, and mobility level with underlying impairments and functional limitations as documented above Presentation: Evolving Decision Makin moderate complexity Goals: N/A. PT evaluation and 1-2 treatment sessions only for functional mobility training using recommended AD and for HEP instruction. Plan of Care/Treatment Plan: N/A. PT evaluation and 1-2 treatment session only for functional mobility training using recommended AD and for HEP instruction. DISCHARGE RECOMMENDATIONS: Home when medically cleared by orthopedic surgeon. Recommend outpatient PT services in order to optimize functional mobility outcomes and facilitate return to independent community ambulation without an assistive device. TREATMENT CODE/TIME: 69930 x 2019 minutes, 39035 x 30 minutes beginning at 16:15 PM. Thank you for the opportunity to participate in the care of this patient. Perlita Card PT, DPT, CLT [facility] [place], [place]
== END 2022-12-24 17:13 | disposition home or self-care (01) ==
PROVIDERS: PCP Family Medicine; Visit Provider Student in an Organized Health Care Education/Training Program
PROC: (CPT 27447; principal; 2022-12-24 13:30)
DX: M17.32 Unilateral post-traumatic osteoarthritis, left knee (principal); Z79.899 Other long term (current) drug therapy; E07.9 Disorder of thyroid, unspecified
CPT/HCPCS: 27447; 20985; 76942; 97162; 97530; J0690; J1100; J1170; J2001; J2250; J2405; J2704

== ENCOUNTER 2023-01-06 16:03 | Outpatient (CLI) | payer MEDICAID, SELFPAY ==
--- NOTE | 2023-01-06 16:36 | DI.RAD_ITS ---
Exam(s) XR KNEE LT 1V XR STANDING ALIGNMENT EXAM: XR STANDING ALIGNMENT CLINICAL HISTORY: 1ST POST OP S/P L TKA. TECHNIQUE: 2D digital imaging was performed. Standing AP views were performed from the pelvis throu gh the ankles. Lateral view of the left knee. COMPARISON: CR XR STANDING ALIGNMENT from 12/20/2022 CR XR KNEE LT 1V from 12/20/2022 CR XR KNEE LT 1V from 01/06/2023 FINDINGS: BONES: No acute fracture is present. No bony destructive lesion is seen. Leg length discrepancy: No significant leg length discrepancy. JOINTS: Knees: Status post placement left total knee prosthesis since the prior exam. The alignmen t appears satisfactory. Prior right ACL repair. Aexf-cw-fvyzayrt narrowing of the medial femoral ti bial joint space. . Ankles: Mild tibiotalar joint space narrowing on the right. Hips: Right hip prosthesis is unremarkable. Left hip joint space is maintained. SOFT TISSUE: Normal. IMPRESSION: Satisfactory alignment of left knee prosthesis. No significant leg length discrepancy. DATA REPOSITORY: RADIATION DOSE DELIVERED:
== END 2023-01-06 16:04 | disposition home or self-care (01) ==
LOC: DIORS 16:04
PROVIDERS: PCP Family Medicine; Visit Provider Student in an Organized Health Care Education/Training Program
DX: Z96.652 Presence of left artificial knee joint (principal); Z47.1 Aftercare following joint replacement surgery
CPT/HCPCS: 73560; 77073

== ENCOUNTER 2023-01-15 15:51 | Observation (INO) | payer MEDICAID, SELFPAY ==
[2023-01-15 16:10] VITALS: BP 118/75; PULSE 77; TEMP 35.9; O2SAT 96
[2023-01-15 16:15] VITALS: BP 118/75; PULSE 77; RESP 16; TEMP 35.9; O2SAT 96
[2023-01-15 16:24] VITALS: BP 118/75; PULSE 77; RESP 16; TEMP 35.9; O2SAT 96
--- NOTE | 2023-01-15 16:33 | HPE_ITS ---
Assessment and Plan Assessment and plan (1) Wound cellulitis: Status: Acute Assessment and plan: Mariola is a 57-year-old who developed acute onset of redness and warmth of the left knee. These 3 small pustules are space in a way that would make sense to be related to the sutures. She does have cellulitis about the left knee and there is some mild fluctuance in the prepatellar space. However, she has no significant pain with range of motion or with ambulation which would suggest there is no deep space infection. However, I am concerned that this could spread. Therefore, I recommend an abundance of caution. I would start IV antibiotics, cefazolin 2 g IV every 8 hours. We will follow this very closely. Given that she has no symptoms suggestive of deep infection I would not aspirate the knee just given the cellulitis around the area. It is possible that there is some fluid that could be drained, however, I would like to get the anti biotics a chance to work. If she does not note some improvement after the first 1-2 doses of antibiotics then I would start with CT scan to evaluate for potential abscess or fluid in the superficial space, and potentially aspiration of the knee. I recommend that she is n.p.o. after midnight to evaluate the knee and potentially offer surgical debridement if necessary, although I find it unlikely. I am hopeful that we can dose her with IV antibiotics and then send her home with a continuation of oral antibiotics for this ongoing cellulitis. (2) Status post total left knee replacement: Status: Acute Assessment and plan: WBAT. Independent with all transfers and ambulation. History of Present Illness History of Present Illness Chief Complaint: Left knee cellulitis Narrative: Mariola is a 57-year-old female was about 3 weeks status post left knee repl acement. She has been doing well. However, over the last 36 to 48 hours she has had increasing redness and warmth about the right knee. She has found no change in her ability to move the knee. She had no increase in pain with range of motion or with weightbearing. However, she has had some malaise. She thinks she may have had some chills although no fever. She has had some redness and warmth of the knee which actually may be a small bit better now than what it was last night. She is noted 3 small pustules over the incision and 1 area of eschar. However, she had no drainage. Review of Systems All systems reviewed & are unremarkable except as noted in HPI and below PFSH All Active Problems Wound cellulitis (Acute) Status post total left knee replacement (Acute) DOS: 12/24/22 Primary osteoarthritis of left hip (Acute) Pain and swelling of left knee (Acute) post horse tether catching ankle injury .. Elevated TSH (Acute) Left ankle injury (Acute) Caught on rope; flipped/dragged by ankle. Menopausal symptoms (Acute) Family history of bleeding or clotting disorder (Acute) At risk for osteoporosis (Acute) Due to prednisone use (local, systemic) for arthritic joint pain. No smoking, no PPI. [place] @ 2009, with HRT @ 2013 (thru 2019?). Snoring (Acute) per , no apparent apneic episodes, but Hx poor sleep @ times Stressful life event affecting family (Acute) Her move here has been difficult, with ex-landlord disposing trailer of personal items and family heirlooms.. Hx of postmenopausal hormone replacement therapy (Acute) Considering re-starting .. need eval and review of med records ([employer] [facility], [place], [place]) Arthritis (Chronic) Years of heavy work, including horse training.. Thyroid disease (Acute) per pt report, Rx? Hx 3g? History of chronic back pain (Acute) Hx Prednisone use. Current use Celebrex. Skin lesions (Acute) Long Hx sun exposure; has seen [facility]. Will return to derm for lip lesion. Hx of renal calculi (Acute) Hx stents, s/p ablation, b/l (2013). Hx 6, 8 mm stones. Risk presumed less 2' alcohol abstention. Caregiver stress (Acute) Cared for parents who recently .. does not need active care, but has health issues he is ignoring. History of cirrhosis of liver (Acute) Assoc with alcohol. Recent labs show WNL LFTs. Hx of Lyme disease (Acute) Hx of temporomandibular joint disorder (Acute) Hx of tinnitus (Acute) Medical History Alcoholic cirrhosis of liver Quit alcohol: 2014 Bilateral kidney stones Current stones 2014; History of stent placement - followed by removal of stents Fibromyalgia Reports developing response following hysterectomy - not official diagnosis Ischial bursitis of right side Resolved s/p hip replacement Surgical History H/O hand surgery microsurgery 2014 RM[facility] reattachment 1972 History of cholecystectomy 2010 History of total right hip replacement (07/31/21) Dr. Tyler Nuclear sclerotic cataract of left eye Plantar fasciitis of right foot (2011) fascial release 2014 Rupture of anterior cruciate ligament of both knees (~05/2001) Status post arthroscopy of left knee (1996) medial mensicus Status post arthroscopy of right knee (1997) medial mensicus Status post cholecystectomy (2008) Status post hysterectomy with oophorectomy (2009) ~5 years of hormonal issues that were managed by rheumatology Status post repair of medial collateral ligament (~05/2001) Status post tubal ligation (1988) Social History Smoking/Tobacco Use Status: Never Smoking risk assessment performed?: Yes Alcohol Intake: former Drug use: Daily Substance use type: marijuana Details: daily marijuana Adopted: No Caregiver/Support person: No Foster care: No Household members: spouse Housing: house Number of Children: 0 Communication Needs: None Education Level: college Details: bachelor's degree Do you need help understanding health information?: Never current occupation: Unemployed Pets and animals: Yes Pets and animals: cat(s), dog(s) and horse(s) Sexually active: Yes Do you think of yourself as: straight/heterosexual Current gender identity: female What is your relationship status?: How often do you talk on the phone with friends or family?: decline to answer How often do you get together with friends or relatives?: decline to answer Do you belong to any clubs or organized social groups?: decline to answer Panel score (0-1 are the most socially isolated patients): 1 What type of physical activity do you participate in: none Yarely/Christianity: Holiness Seatbelt use: always Helmet use: Yes Helmet use: always Drive intox or ride w/intox 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 Do you feel safe at home: Yes Do you feel safe in your relationship?: Yes History History 0 Para Hx # Term Pregnancies Multiple births Hx # Pregnancies Ectopic pregnancies AB induced Hx Number of Living Children AB spontaneous Meds Allergies and Home Medications Allergies Allergy/AdvReac Type Severity Reaction Status Date / Time bee venom protein (honey bee) Allergy Severe ANAPHYLAXIS-yellow Verified 01/15/23 15:13 jacket/hornet Latex, Natural Rubber AdvReac Intermediate blister/marcy Verified 01/15/23 15:13 h codeine AdvReac Nausea, Verified 01/15/23 15:13 vomiting, rash oxycodone AdvReac Nausea, Verified 01/15/23 15:13 vomiting, DAMICO Home Medications Medication Instructions Recorded Confirmed Type magnesium glycinate 100 mg tablet 200 mg PO BID 11/08/21 01/15/23 History levothyroxine 100 mcg tablet 100 mcg PO DAILY #90 tabs 01/04/22 01/15/23 Rx ketamine 100 mg sublingual yumiko 200 mg sublingual .COMPLEX 12/20/22 01/15/23 History aspirin 81 mg tablet,delayed 81 mg PO BID 30 days #60 tabs 12/24/22 01/15/23 Rx release celecoxib 200 mg capsule (Celebrex) 200 mg PO BID PRN #60 caps 12/24/22 01/15/23 Rx pantoprazole 40 mg tablet,delayed 40 mg PO DAILY #14 tabs 12/24/22 01/15/23 Rx release ondansetron HCl 4 mg tablet 4 mg PO Q8H PRN nausea and 12/30/22 01/15/23 Rx vomiting #20 tabs acetaminophen 500 mg tablet 1,000 mg PO Q8H PRN pain #90 tabs 01/06/23 01/15/23 Rx Exam Const General: cooperative, healthy appearing, comfortable and no acute distress Resp Auscultation: clear to auscultation bilaterally Cardio Rate: regular rate Rhythm: regular rhythm Extrem Other: Evaluation of the left knee shows an approximate incision. There are 3 punctate pustules at the proximal one third of the incision intervals of about 1 cm apart and about 2 to 3 mm in diameter. There is no associated fluctuance. With some direct pressure in this area there is some tenderness but no fluctuance palpated no expressible fluid. The incision is approximated without any dehiscence or areas of drainage. There is possibly some fluctuance about the prepatellar region but once again no expressible fluid. There does not appear to be a significant joint effusion. She is able to actively move the knee from about 5 to 110 degrees. She has an intact straight leg raise, 5 out of 5. She is observed walking around the room and getting up and down out of a chair without any limitation she reports no pain. The knee is stable to varus and valgus stress. Results Labs 01/15/23 Unknown 01/15/23 16:34 Last Vital Signs Temp 35.9 C L 01/15/23 16:24 Pulse 77 01/15/23 16:24 Resp 16 01/15/23 16:24 BP 118/75 01/15/23 16:24 Pulse Ox 96 01/15/23 16:24
[2023-01-15 16:55] LABS: HCT 38.2 % (36.0-46.0); HGB 12.5 g/dL (11.2-15.7); MCH 30.3 pg (27.0-33.0); MCHC 32.7 % (32.0-36.0); MCV 93 fL (80-95); MPV 9.7 fL (8.0-11.0); Platelet Count 277 10^3/uL (130-400); RBC 4.12 10^6/uL (3.93-5.22); RDW 14.4 % (11.7-14.6); RDW-SD 49.2 fL; WBC 8.44 10^3/uL (4.4-10.8)
[2023-01-15 17:18] LABS: Anion Gap 9.1 mmol/L (3-11); BUN 12 mg/dL (7-18); C-Reactive Protein 1.84 mg/dL (0.0-0.3); CO2 28.9 mmol/L (21.0-32.0); Chloride 104 mmol/L (98-107); Estimated GFR 65.71 (mL/min/1.73m2); Glucose 133 mg/dL (74-106); Potassium 3.7 mmol/L (3.5-5.1); Sodium 142 mmol/L (136-145)
[2023-01-15] MEDS: ceFAZolin 2 GM/50 ML BAG IVPB (18:33)
[2023-01-15] MEDS: traMADol 50 MG TAB PO (18:37)
[2023-01-15 19:24] VITALS: BP 116/72; PULSE 88; RESP 19; TEMP 37.1; O2SAT 97
[2023-01-15] MEDS: Aspirin E.C. 81 MG TABEC PO (20:43)
[2023-01-15] MEDS: Celecoxib 200 MG CAP PO (20:43)
[2023-01-15] MEDS: Acetaminophen 500 MG TAB 1000 MG PO (20:43)
[2023-01-15 23:10] VITALS: BP 105/64; PULSE 78; RESP 17; TEMP 36.1; O2SAT 96
[2023-01-16] MEDS: ceFAZolin 2 GM/50 ML BAG IVPB ×2 (02:18→10:29)
[2023-01-16 04:59] VITALS: BP 112/68; PULSE 77; RESP 16; TEMP 36.6; O2SAT 96
[2023-01-16 07:30] VITALS: BP 124/77; PULSE 79; RESP 14; TEMP 36.9; O2SAT 96
[2023-01-16] MEDS: Acetaminophen 500 MG TAB 1000 MG PO ×2 (08:03→13:44)
[2023-01-16] MEDS: Celecoxib 200 MG CAP PO (08:03)
[2023-01-16] MEDS: Aspirin E.C. 81 MG TABEC PO (08:03)
[2023-01-16] MEDS: traMADol 50 MG TAB PO (08:04)
[2023-01-16] MEDS: Pantoprazole 40 MG TABCR PO (08:04)
--- NOTE | 2023-01-16 08:42 | W.PM.DS.N ---
Date of service: 01/16/23 Time of Service: 07:20 DS: Diagnosis Discharge Diagnosis (1) Wound cellulitis: Status: Acute (2) Status post total left knee replacement: Status: Acute Discharge Plan Disposition Patient Disposition: Home Condition: Improving Discharge Details Reason For Visit: Left TKA, Left Knee Cellulitis Admit Date/Time: 01/15/23 15:51 Admit Provider: Tj Tyler Attending Provider: Tj Tyler Primary Care Provider: [facility] Hospital Course: Mariola was admitted to the med/surg floor for intravenous antibiotics. She had improvement with her symptoms and no pain with weight bearing. She was deemed safe to discharge home with oral antibiotics and close follow-up. Home Meds and New Rx's Prescriptions: New cephalexin 500 mg capsule 500 mg PO QID Qty: 28 0RF Continued acetaminophen 500 mg tablet 1,000 mg PO Q8H PRN Qty: 90 0RF Rx Instructions: Take two tablets up to every 8 hours as needed for pain ketamine 100 mg yumiko 200 mg sublingual .COMPLEX Rx Instructions: 200 mg sublingually twice per week; magnesium glycinate 100 mg tablet 200 mg PO BID Rx Instructions: for leg cramps/bowel regularity levothyroxine 100 mcg tablet 100 mcg PO DAILY Qty: 90 1RF Rx Instructions: Start approx 02/06/22, after taper up with 25mcg tabs .. BEFORE FOOD ondansetron HCl 4 mg tablet 4 mg PO Q8H PRN (Reason: nausea and vomiting) Qty: 20 0RF celecoxib [Celebrex] 200 mg capsule 200 mg PO BID PRNQty: 60 0RF Rx Instructions: Take one tablet twice daily for pain and inflammation aspirin 81 mg tablet,delayed release (DR/EC) 81 mg PO BID 30 Days Qty: 60 0RF pantoprazole 40 mg tablet,delayed release (DR/EC) 40 mg PO DAILY Qty: 14 0RF Discharge Instructions Additional Instructions: You may continue with normal activity, but avoid deep flexion and physical therapy for the next week until wound has improved. Use Celebrex and Tylenol as needed for pain. Keep the wound covered with bandaid if draining. Take Keflex 500mg four times a day. F/U by phone with images on 01/20/23. Referrals: Tj Tyler MD [ [facility] STAFF PHYSICIAN] - Activity:: Activity as Tolerated Equipment/Supplies:: No Equipment Needed Diet:: As Tolerated Discharge Orders Discharge Orders: Discharge Order (Routine); Ordered 01/16/23 Ordered By: Tj Tyler DS: Summary Time Spent with Patient providing and/or coordinating discharge services: Greater than 30 minutes Status at Discharge Functional status at discharge: independent ambulation Overall status at discharge: patient is progressing back to baseline Mental Status: mental status grossly normal Speech and Movement: speech and movement normal Mood: congruent mood Affect: normal affect Exam Narrative Exam Narrative: NAD. AAOx3. Moving freely about the room. Extrem Other: Left knee wound appears improved with significant improvement of the size of hte errythema. The three small pustules of the superior portion of the wound were still present and I cleansed them with Betadine and made a small incision in those three pustules expressing less than 1cc of cloudy, purulent material. This was swabbed and sent to the lab. No pain with ROM. Pain with palpation over the anterior knee. No significant fluctuance. Psych Mental Status: mental status grossly normal Speech and Movement: speech and movement normal Mood: congruent mood Affect: normal affect DS: Data Vitals/I&O Vitals and I&O: Vital Signs Temperature 36.6 C 01/16/23 04:59 Temperature Source Tympanic 01/16/23 04:59 Pulse 77 01/16/23 04:59 Pulse Rhythm Regular 01/16/23 00:49 Respiratory Rate 16 01/16/23 04:59 Respiratory Effort Normal 01/16/23 00:49 Respiratory Depth Normal 01/16/23 00:49 Respiratory Pattern Normal 01/16/23 00:49 Blood Pressure 112/68 01/16/23 04:59 Pulse Oximetry 96 01/16/23 04:59 Oxygen Delivery Method Room Air 01/16/23 04:59 Oxygen Flow Rate 0 01/16/23 04:59 Pain Level 3 01/16/23 08:03 Comment pt cleared by Dr. Tyler to be independent in the room. 01/15/23 16:15 Intake & Output 01/15/23 01/15/23 01/16/23 11:59 23:59 11:59 Intake Total 100 / 100 Balance 100 / 100 Weight 76.657 kg Intake: IV 100 / 100 Other: Urine Appearance Clear Clear Data Completed and Pending Labs on day of discharge: Labs from last 24 hours 01/15/23 01/15/23 16:46 16:46 WBC 8.44 RBC 4.12 Hgb 12.5 Hct 38.2 MCV 93 MCH 30.3 MCHC 32.7 RDW 14.4 Plt Count 277 MPV 9.7 Sodium 142 Potassium 3.7 Chloride 104 Carbon Dioxide 28.9 Anion Gap 9.1 BUN 12 Creatinine 1.0 Est GFR (CKD-EPI 2020) 65.71 Glucose 133 H Calcium 9.0 C-Reactive Protein 1.84 H 01/16/23 07:49 Knee - Left Wound Culture - Pending 01/16/23 07:49 Knee - Left Gram Stain - Pending Preliminary micro results at discharge 01/16/23 07:49 Wound Culture - Pending Knee - Left Gram Stain - Pending [facility] All Active Problems Wound cellulitis (Acute) Status post total left knee replacement (Acute) DOS: 12/24/22 Primary osteoarthritis of left hip (Acute) Pain and swelling of left knee (Acute) post horse tether catching ankle injury .. Elevated TSH (Acute) Left ankle injury (Acute) Caught on rope; flipped/dragged by ankle. Menopausal symptoms (Acute) Family history of bleeding or clotting disorder (Acute) At risk for osteoporosis (Acute) Due to prednisone use (local, systemic) for arthritic joint pain. No smoking, no PPI. [place] @ 2009, with HRT @ 2013 (thru 2019?). Snoring (Acute) per , no apparent apneic episodes, but Hx poor sleep @ times Stressful life event affecting family (Acute) Her move here has been difficult, with ex-landlord disposing trailer of personal items and family heirlooms.. Hx of postmenopausal hormone replacement therapy (Acute) Considering re-starting .. need eval and review of med records ([facility], [place], [place]) Arthritis (Chronic) Years of heavy work, including horse training.. Thyroid disease (Acute) per pt report, Rx? Hx 3g? History of chronic back pain (Acute) Hx Prednisone use. Current use Celebrex. Skin lesions (Acute) Long Hx sun exposure; has seen [facility]. Will return to derm for lip lesion. Hx of renal calculi (Acute) Hx stents, s/p ablation, b/l (2013). Hx 6, 8 mm stones. Risk presumed less 2' alcohol abstention. Caregiver stress (Acute) Cared for parents who recently .. does not need active care, but has health issues he is ignoring. History of cirrhosis of liver (Acute) Assoc with alcohol. Recent labs show WNL LFTs. Hx of Lyme disease (Acute) Hx of temporomandibular joint disorder (Acute) Hx of tinnitus (Acute) Medical History Alcoholic cirrhosis of liver Quit alcohol: 2014 Bilateral kidney stones Current stones 2014; History of stent placement - followed by removal of stents Fibromyalgia Reports developing response following hysterectomy - not official diagnosis Ischial bursitis of right side Resolved s/p hip replacement Surgical History H/O hand surgery microsurgery 2014 RMF reattachment 1972 History of cholecystectomy 2010 History of total right hip replacement (07/31/21) Dr. Tyler Nuclear sclerotic cataract of left eye Plantar fasciitis of right foot (2011) fascial release 2013 Rupture of anterior cruciate ligament of both knees (~05/2001) Status post arthroscopy of left knee (1996) medial mensicus Status post arthroscopy of right knee (1997) medial mensicus Status post cholecystectomy (2008) Status post hysterectomy with oophorectomy (2009) ~5 years of hormonal issues that were managed by rheumatology Status post repair of medial collateral ligament (~05/2001) Status post tubal ligation (1988) Social History Smoking/Tobacco Use Status: Never Smoking risk assessment performed?: Yes Alcohol Intake: former Drug use: Daily Substance use type: marijuana Details: daily marijuana Adopted: No Caregiver/Support person: No Foster care: No Household members: spouse Housing: house Number of Children: 0 Communication Needs: None Education Level: college Details: bachelor's degree Do you need help understanding health information?: Never current occupation: Unemployed Pets and animals: Yes Pets and animals: cat(s), dog(s) and horse(s) Sexually active: Yes Do you think of yourself as: straight/heterosexual Current gender identity: female What is your relationship status?: How often do you talk on the phone with friends or family?: decline to answer How often do you get together with friends or relatives?: decline to answer Do you belong to any clubs or organized social groups?: decline to answer Panel score (0-1 are the most socially isolated patients): 1 What type of physical activity do you participate in: none Yarely/Congregational: Mormonism Seatbelt use: always Helmet use: Yes Helmet use: always Drive intox or ride w/intox armor reconnaissance vehicle driver: No Do you feel safe at home: Yes Do you feel safe in your relationship?: Yes History History 0 Para Hx # Term Pregnancies Multiple births Hx # Pregnancies Ectopic pregnancies AB induced Hx Number of Living Children AB spontaneous Time Spent with Patient Time Spent with Patient: 45-69 minutes Time was spent: ordering medications,tests, procedures, indepentently interpreting results and counseling the patient
[2023-01-16 11:20] VITALS: BP 126/73; PULSE 77; RESP 14; TEMP 36.5; O2SAT 98
== END 2023-01-16 15:36 | disposition home or self-care (01) ==
PROVIDERS: Admitting Provider Student in an Organized Health Care Education/Training Program; PCP Family Medicine; Visit Provider Student in an Organized Health Care Education/Training Program
DX: L03.116 Cellulitis of left lower limb (principal); Z96.652 Presence of left artificial knee joint; G89.29 Other chronic pain; M54.9 Dorsalgia, unspecified; E07.9 Disorder of thyroid, unspecified
CPT/HCPCS: 80048; 85027; 87077; 96365; 96366; 86140; 87070; 87186; 87205; G0378; J0690

== ENCOUNTER 2024-09-15 13:51 | Outpatient (REF) | payer MEDICAID, SELFPAY ==
[2024-09-15 21:25] LABS: Abs Immature Grans 0.02 10^3/uL (0.0-0.06); Absolute Basophil Count 0.06 10^3/uL (0.0-0.2); Absolute Eosinophil Count 0.09 10^3/uL (0.0-0.7); Absolute Lymphocyte Count 2.23 10^3/uL (1.2-3.4); Absolute Monocyte Count 0.41 10^3/uL (0.1-0.8); Absolute Neutrophil Count 4.25 10^3/uL (1.2-6.7); Basophils % 0.8 %; Eosinophils % 1.3 %; HCT 42.8 % (36.0-46.0); HGB 14.5 g/dL (11.2-15.7); Immature Grans % 0.3 %; Lymphocytes % 31.6 %; MCH 30.1 pg (27.0-33.0); MCHC 33.9 % (32.0-36.0); MCV 89 fL (80-95); MPV 10.7 fL (8.0-11.0); Monocytes % 5.8 %; Neutrophils % 60.2 %; Platelet Count 256 10^3/uL (130-400); RBC 4.81 10^6/uL (3.93-5.22); RDW 13.1 % (11.7-14.6); RDW-SD 43.1 fL; WBC 7.06 10^3/uL (4.4-10.8)
[2024-09-15 21:40] LABS: ALT 26 U/L (14-59); AST 20 U/L (15-37); Albumin 4.3 g/dL (3.4-5.0); Alkaline Phosphatase 73 U/L (46-116); Anion Gap 7.8 mmol/L (3-11); BUN 13 mg/dL (7-18); Bilirubin, Total 0.3 mg/dL (0.2-1.0); CO2 27.2 mmol/L (21.0-32.0); CREATININE 1.1 mg/dL (0.55-1.02); Calcium 9.6 mg/dL (8.5-10.1); Chloride 105 mmol/L (98-107); Estimated GFR 58.24 (mL/min/1.73m2); Glucose 102 mg/dL (74-106); Potassium 4.4 mmol/L (3.5-5.1); Sodium 140 mmol/L (136-145); Total Protein 7.1 g/dL (6.4-8.2)
== END 2024-09-15 13:52 | disposition home or self-care (01) ==
LOC: LBN 13:51
PROVIDERS: PCP Family Medicine; Visit Provider Nurse Practitioner Family
DX: R10.9 Unspecified abdominal pain (principal); M54.50 Low back pain, unspecified; Z87.442 Personal history of urinary calculi; Z87.39 Personal history of other diseases of the musculoskeletal system and connective tissue
CPT/HCPCS: 80053; 85025

== ENCOUNTER 2024-09-15 14:15 | Outpatient (CLI) | payer MEDICAID, SELFPAY ==
--- NOTE | 2024-09-15 13:45 | DI.RAD_ITS ---
Exam(s) XR LUMBAR SPINE COMPLETE EXAM: XR LUMBAR SPINE COMPLETE CLINICAL HISTORY: eval pathology,lumbar pain, m54.50. TECHNIQUE: 2D digital imaging was performed. COMPARISON: CR XR PELVIS AP from 07/23/2021 FINDINGS: Five views: There is no evidence of fracture but there is anterolisthesis of L4 upon L5 with approximately 7 mm a nterior slippage of L4 upon L5 as seen on the lateral view, not associated with pars defects and ther e is no disc space narrowing at this level. This is related to facet arthropathy this level. There is advanced chronic disc space narrowing at L5-S1 level. Other disc spaces exhibit normal heig ht. There is facet arthropathy at the lower 3 levels. Sacroiliac joints appear unremarkable. There is no scoliosis in the lumbar spine. No osseous lesions. There is a right hip prosthesis. There are surgical clips in the right upper quadrant from prior cho lecystectomy. There are 2 radiopaque densities over the right hemipelvis noted, possibly within clot chin. IMPRESSION: There is degenerative anterolisthesis of L4 upon L5 as described above. There is no disc space narro wing at this level but there is advanced disc space narrowing at L5-S1 level. If clinically indicated follow-up MRI can be performed. Right hip prosthesis noted. This was placed on 07/31/2021 DATA REPOSITORY: RADIATION DOSE DELIVERED:
== END 2024-09-15 14:35 ==
LOC: DI 14:16
PROVIDERS: PCP Family Medicine; Visit Provider Nurse Practitioner Family
DX: M54.50 Low back pain, unspecified (principal); N20.0 Calculus of kidney
CPT/HCPCS: 72110

== ENCOUNTER 2024-09-17 00:18 | Outpatient (CLI) | payer MEDICAID, SELFPAY ==
--- NOTE | 2024-09-17 08:30 | DI.US_ITS ---
Exam(s) US RENAL EXAM: US RENAL CLINICAL HISTORY: eval pathology, UNSPECIFIED ABD PAIN, R10.9 TECHNIQUE: Ultrasound of both kidneys performed using standard protocol. COMPARISON: US POCUS EXAM from 12/24/2022 CR XR LUMBAR SPINE COMPLETE from 09/15/2024 FINDINGS: RIGHT KIDNEY: Measures 10 cm in length. No cysts evident. Normal cortical thickness and corticomedullary differenti ation .No solid masses There is a 3 millimeter shadowing calculus in the mid-lower pole region of the right kidney. No hydr onephrosis. LEFT KIDNEY: Measures 11 cm in length. No cysts evident. Normal cortical thickness and corticomedullary different iaion. No solids masses. There is a 2 millimeter echogenic focus in the superior pole region left ki dney which is possibly a nonobstructive calculus. URINARY BLADDER: Prevoid volume is 735 cc Postvoid volume is 84 cc No evidence of bladder mass nor diverticuli. Ureterovesical jets: Left jet visualized. Right jet visualized postvoid. IMPRESSION: 1. Bilateral nephrolithiasis. No evidence of hydronephrosis. 2. Large prevoid urinary bladder volume and increased postvoid volume as described above DATA REPOSITORY:
== END 2024-09-17 00:38 ==
LOC: DI 00:19
PROVIDERS: PCP Family Medicine; Visit Provider Nurse Practitioner Family
DX: R10.9 Unspecified abdominal pain (principal); N20.0 Calculus of kidney
CPT/HCPCS: 76770

== ENCOUNTER 2025-03-30 12:37 | Outpatient (CLI) | payer MEDICAID, SELFPAY ==
--- NOTE | 2025-03-30 12:30 | RT.EKG_ITS ---
APPROVED REPORT Exam: Resting ECG Reason for Exam: chest discomfort Patient Location: O HR:87 bpm ECG Measurements Heart Rate 87 AXIS AL 151 P 77 QRSd 89 QRS 13 QT 354 T 44 QTc 426 Conclusion Sinus rhythm...normal P axis, V-rate 50- 99 Normal Electrocardiogram
== END 2025-03-30 12:38 | disposition home or self-care (01) ==
LOC: DI.CM 12:37
PROVIDERS: PCP Nurse Practitioner Family; Visit Provider Nurse Practitioner Family
DX: R07.89 Other chest pain (principal)
CPT/HCPCS: 93010

== ENCOUNTER 2025-03-30 13:33 | Observation (INO) | payer MEDICAID, SELFPAY ==
[2025-03-30] VITALS (54 sets, daily range): BP systolic 115–157; BP diastolic 73–97; PULSE 89–121; RESP 13–36; TEMP 37.1–38.5; O2SAT 94–99
--- NOTE | 2025-03-30 13:30 | RT.EKG_ITS ---
APPROVED REPORT Exam: Resting ECG Reason for Exam: chest pain Patient Location: E HR:99 bpm ECG Measurements Heart Rate 99 AXIS MA 138 P 89 QRSd 85 QRS 54 QT 335 T 55 QTc 430 Conclusion Sinus rhythm...normal P axis, V-rate 60- 99 No Occlusion [place]
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
[2025-03-30 14:32] LABS: Abs Immature Grans 0.03 10^3/uL (0.0-0.06); HCT 38.3 % (36.0-46.0); HGB 12.7 g/dL (11.2-15.7); MCH 28.9 pg (27.0-33.0); MCHC 33.2 % (32.0-36.0); MCV 87 fL (80-95); MPV 9.7 fL (8.0-11.0); Platelet Count 218 10^3/uL (130-400); RBC 4.40 10^6/uL (3.93-5.22); RDW 12.8 % (11.7-14.6); RDW-SD 41.1 fL; WBC 5.27 10^3/uL (4.4-10.8)
--- NOTE | 2025-03-30 14:51 | DI.RAD_ITS ---
Exam(s) XR CHEST 2V PA LATERAL EXAM: XR CHEST 2V PA LATERAL CLINICAL HISTORY: Chest pain TECHNIQUE: 2D digital imaging was performed of the chest. Two images were obtained. PA and lateral views were obtained. COMPARISON: No exams were available for comparison FINDINGS: MEDIASTINUM: Normal. HEART: Normal. PULMONARY VASCULATURE: Normal. LUNGS: Clear. PLEURAL SPACE: No pleural effusion or pneumothorax. BONE:Within normal limits for the patient's age. OTHER FINDINGS:Normal. IMPRESSION: No acute pulmonary findings. DATA REPOSITORY: RADIATION DOSE DELIVERED:
[2025-03-30 14:54] LABS: Anion Gap 8.0 mmol/L (3-11); BUN 6 mg/dL (7-18); CO2 26.0 mmol/L (21.0-32.0); Calcium 8.8 mg/dL (8.5-10.1); Chloride 100 mmol/L (98-107); Glucose 105 mg/dL (74-106); Magnesium 1.9 mg/dL (1.8-2.4); Potassium 3.8 mmol/L (3.5-5.1); Sodium 134 mmol/L (136-145); TSH (W/Ref FT4) 2.44 uIU/mL (0.36-3.74); Troponin I 5 ng/L (<or=51)
[2025-03-30 15:15] LABS: Immature Grans % 0.0 %; RBC Morphology Normal
[2025-03-30 15:44] LABS: Troponin I 5 ng/L (<or=51)
[2025-03-30 16:00] LABS: Lab Add On Test DONE
[2025-03-30] MEDS: Aspirin 81 MG CHEW 324 MG CH (16:19)
[2025-03-30] MEDS: Doxycycline Hyclate 100 MG CAP PO (16:20)
[2025-03-30 16:34] LABS: D-Dimer 3060 ng/mlFEU (<500)
--- NOTE | 2025-03-30 16:45 | DI.CT_ITS ---
Exam(s) CT CHEST PE CTA EXAM: CT CHEST PE CTA CLINICAL HISTORY: Positive dimer. TECHNIQUE: Imaging Protocol: Axial CT angiography was performed with multi- slice acquisition and multi-planar and/or 3D reconstructions. Lung Computer Aided Detection (CAD) was utilized. CONTRAST MATERIAL: Intravenous: Omnipaque 350 contrast volume:97 mL COMPARISON: CR XR CHEST 2V PA LATERAL from 03/30/2025 FINDINGS: Tracheobronchial tree: Patent where visualized. No bronchiectasis. Pulmonary parenchyma: No consolidation or dominant measurable mass. No architectural distortion. Pulmonary Arteries: No evidence of filling defect to suggest pulmonary emboli. Mediastinum and Zully: No dominant adenopathy or fluid collection. The esophagus is unremarkable. Visualized thyroid gland: Unremarkable. Pleura: No effusion or pneumothorax. Heart: The heart is not dilated. No coronary artery calcifications are seen. No pericardial effusion. Aorta: Thoracic aorta non-dilated. No evidence of dissection. Mild atherosclerotic calcification is present. Upper abdomen: There is a cyst in the right lobe of the liver. Soft tissues: Unremarkable. Bones: Within normal limits for the patient's age. IMPRESSION: 1. No evidence of pulmonary embolism, thoracic aortic dissection or aneurysm. 2. There is no acute pulmonary process. RADIATION DOSE DELIVERED: 60.75mGy.cm Total DLP DATA REPOSITORY: All CT scans at this facility are submitted to the National Radiology Data Registry (NRDR) Dose Index Registry (DIR) with the [employer] (ACR). RADIATION OPTIMIZATION: All CT scans at this facility use at least one of these dose optimization techniques: automated exposure control; mA and/or kV adjustment per patient size (includes targeted exams where dose is matched to clinical indication); or iterative reconstruction.
[2025-03-30] MEDS: Omnipaque 350 MG/ML 100 ML BTL IJ (17:00)
[2025-03-30] MEDS: Normal Saline - Diluent 50 ML VIAL IJ (17:00)
[2025-03-30] MEDS: Normal Saline Flush 10 ML SYR IVP (17:01)
[2025-03-30 17:23] LABS: COVID-19 PCR Negative (Negative); RSV PCR Negative (Negative)
--- NOTE | 2025-03-30 18:11 | W.EDPROG ---
Date of service: 03/30/25 Time of Service: 18:12 Medical Decision Making Patient signed out to me pending CTA which was negative, plan was for admission for stress test tomorrow, patient is stable and is still agreeable with this. Will discuss with night hospitalist. Discharge Plan Disposition Patient Disposition: Admit to [facility] Discharge Details Clinical Impression: Tick bite, Chest pain, unspecified, Positive D dimer Primary Care Provider: Car Boyd ED Provider: Keon Dejesus Home Meds and New Rx's Prescriptions: No Action No Known Home Meds
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
[2025-03-30] MEDS: Metoprolol 12.5 MG TAB PO (20:43)
[2025-03-30] MEDS: Atorvastatin 40 MG TAB 80 MG PO (20:43)
[2025-03-30] MEDS: Acetaminophen 325 MG TAB 650 MG PO (22:14)
[2025-03-30 23:32] LABS: Troponin I 5 ng/L (<or=51)
[2025-03-31] VITALS (9 sets, daily range): BP systolic 105–137; BP diastolic 67–86; PULSE 78–90; RESP 16–20; TEMP 36.2–38.9; O2SAT 95–97
[2025-03-31 01:15] LABS: Troponin I 5 ng/L (<or=51)
[2025-03-31] MEDS: Acetaminophen 325 MG TAB 650 MG PO ×2 (04:31→16:49)
[2025-03-31 04:35] LABS: Glucose Negative (Negative)
[2025-03-31 04:44] LABS: Cannabinoids THC Positive (Negative)
[2025-03-31 04:47] LABS: C & S Indicated? No; RBC 0-2 HPF (0-2); WBC Negative HPF (0-5)
[2025-03-31 04:50] LABS: HCT 38.4 % (36.0-46.0); HGB 13.0 g/dL (11.2-15.7); MCH 29.5 pg (27.0-33.0); MCHC 33.9 % (32.0-36.0); MCV 87 fL (80-95); MPV 9.8 fL (8.0-11.0); Platelet Count 173 10^3/uL (130-400); RBC 4.40 10^6/uL (3.93-5.22); RDW 12.9 % (11.7-14.6); RDW-SD 40.8 fL; WBC 4.85 10^3/uL (4.4-10.8)
[2025-03-31 05:04] LABS: ALT 43 U/L (14-59); AST 28 U/L (15-37); Albumin 3.1 g/dL (3.4-5.0); Alkaline Phosphatase 85 U/L (46-116); Anion Gap 8.8 mmol/L (3-11); BUN 6 mg/dL (7-18); Bilirubin, Total 0.5 mg/dL (0.2-1.0); CO2 26.2 mmol/L (21.0-32.0); Calcium 8.4 mg/dL (8.5-10.1); Chloride 102 mmol/L (98-107); Glucose 110 mg/dL (74-106); Magnesium 1.8 mg/dL (1.8-2.4); Potassium 3.8 mmol/L (3.5-5.1); Sodium 137 mmol/L (136-145); Total Protein 6.7 g/dL (6.4-8.2)
[2025-03-31 05:30] LABS: Troponin I 5 ng/L (<or=51)
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
[2025-03-31] MEDS: Regadenoson 0.4 MG/5 ML SYR IVP (11:20)
[2025-03-31] MEDS: Aspirin 81 MG CHEW PO (12:52)
[2025-03-31] MEDS: Enoxaparin 40 MG/0.4 ML SYR SC (12:52)
[2025-03-31] MEDS: Metoprolol 12.5 MG TAB PO ×2 (12:53→20:37)
[2025-03-31] MEDS: Normal Saline Flush 10 ML SYR IVP ×3 (12:53→20:37)
[2025-03-31] MEDS: DOXYCYCLINE 100 MG in Normal Saline 100 ML IVPB (12:53)
[2025-03-31 13:54] LABS: INR 1.0 (0.9-1.1); Prothrombin Time 10.2 sec (9.1-11.1)
--- NOTE | 2025-03-31 14:03 | CHAPLAIN ---
Mariola was sitting up in bed when I visited. She was a bit teary and asked for a prayer, we did that together. Mariola lives in [facility] and her will be in later to visit. Mariola said she is used to injuries, but not being ill. The medical staff have eliminated some possibilities of what she could be dealing with, and Mariola is grateful for that.
--- NOTE | 2025-03-31 14:25 | PHA.REVIEW2 ---
Pharmacy Admission Review Admission Clinical Review Admission Pharmacy Review: Atypical chest pain (Acute) Positive D dimer (Acute) Chest pain, unspecified (Acute) Tick bite (Acute) bee venom protein (honey bee) Allergy (Severe, Verified 03/30/25 13:52) ANAPHYLAXIS-yellow jacket/hornet Latex, Natural Rubber Adverse Reaction (Intermediate, Verified 03/30/25 13:52) blister/rash codeine Adverse Reaction (Verified 03/30/25 13:52) Nausea, vomiting, rash oxycodone Adverse Reaction (Verified 03/30/25 13:52) Nausea, vomiting, DAMICO Resuscitation Status Full Code Height 5 ft 11 in Weight 66.7 kg Pharmacy Admission Review Renal Dosing Renal Dosing: BUN 6 mg/dL (7-18) L 03/31/25 04:30 Creatinine 0.7 mg/dL (0.55-1.02) 03/31/25 04:30 Medications needing adjustments: Reviewed (CrCl 90.95 mL/min) List of meds needing interventions: Current medications are okay Anticoagulation Anticoagulation: Hgb 13.0 g/dL (11.2-15.7) 03/31/25 04:30 Hct 38.4 % (36.0-46.0) 03/31/25 04:30 Plt Count 173 10^3/uL (130-400) 03/31/25 04:30 INR 1.0 (0.9-1.1) 03/31/25 13:12 Creatinine 0.7 mg/dL (0.55-1.02) 03/31/25 04:30 DVT Prophylaxis: Reviewed Medications: Enoxaparin (40mg daily) Relevant Labs Relevant Labs: Sodium 137 mmol/L (136-145) 03/31/25 04:30 Potassium 3.8 mmol/L (3.5-5.1) 03/31/25 04:30 Chloride 102 mmol/L (98-107) 03/31/25 04:30 Magnesium 1.8 mg/dL (1.8-2.4) 03/31/25 04:30 Electrolytes, C-Reactive P, ESR: Reviewed Cardiac Review Cardiac Review: Troponin I 5 ng/L (<or=51) 03/31/25 04:30 BP, HR, EF%: Reviewed (BP/HR WNL) List meds needing interventions: Has order for metoprolol 12.5mg q8h QTc Review QTc: Reviewed (430 from 03/30/25) IV to PO Switch IV Medications: Reviewed Home Meds Home Med List reviewed: Reviewed Relevent Home Meds Not ordered & why?: No known home meds Current Meds Current Medication Order Review: Intervened Comments: changed metoprolol timing to be on even hour per pharmacy protocol Pharmacy Antibiotic Review Relevant Labs: WBC 4.85 10^3/uL (4.4-10.8) 03/31/25 04:30 Temperature 36.8 C Pharmacy Antibiotic Activity: Reviewed, no change Comments: Patient is on doxycycline PO, day 1, for tick bite with tick panel pending. Blood cultures pending as well.
--- NOTE | 2025-03-31 15:52 | DI.NM_ITS ---
APPROVED REPORT Exam: Pharmacologic Patient Location: In-Patient Room/Bed: Stress Nurse: Dania Pritchard RN Ordering Provider:CAROLYNE GUDINO, Contact Number: BMI: 21.61 Baseline Rhythm: Sinus Rhythm Indications: SOB with exertional chest pain Medical History Medical History: Thyroid disease, chronic back pain, hx cirrhosis of liver hx lyme disease, fibromyalgia Cardiac Medications: None Allergies: Honey bee, latex, codeine, oxycodone Cardiac Risk Factors: None Previous Cardiac Procedures: None Pretest Chest Pain Characteristics: 5/10 sharp Exercise History: Indeterminate Physical Disabilities: Patient wearing socks (no shoes) Lung Sounds: Clear to auscultation Heart Sounds: Regular Stress Test Details Test: Pharmacologic stress testing performed using 0.4 mg of regadenoson per 5 mL given IV over 10 seconds. Reason for pharmacologic stress test: physical limitation. Nuclear Acquisition: Rest Tc-99m/Stress Tc-99m 1 day Rest Isotope: Tc-99m Sestamibi. Dose: 10.0 Date: 03/31/2025 Injection Time: 0915 Stress Isotope: Tc-99m Sestamibi. Dose: 30.0 Date: 03/31/2025 Injection Time: 1120 HR Resting HR Supine: 94 bpm Max Heart Rate (APMHR): 161 bpm Resting HR Standin bpm Target HR (85% APMHR): 137 bpm Max HR Achieved: 138 bpm % of APMHR: 86 Recovery HR: 108 bpm BP Resting BP Supine: 112/68 mmHg Max BP: 138/50 mmHg Recovery BP: 128/78 mmHg ECG Resting ECG: Sinus Rhythm Ectopy: None Stress ECG: Sinus Tachycardia ST Change: No significant ST segment changes noted Arrhythmia: None Recovery ECG: Sinus Tachycardia Recovery ST Change: No significant ST segment changes noted Recovery Arrhythmia: None Clinical Stress Symptoms: 3-5/10 sharp chest pain Angina Score: Non-Limiting Rate Pressure Product: [id number] Stress ECG Conclusion 1. Resting electrocardiogram was normal 2. Patient underwent testing using pharmacologic stress with regadenoson 3. Peak heart rate achieved was 86% of maximal predicted for age 4. There was no electrocardiographic evidence of myocardial ischemia 5. See MPI report Stress Test Summary STAGE HR BP SpO2 Symptoms NOTES Supine 94 112/68 98% 5/10 sharp chest pain 1 min post Lexiscan injection 92 128/64 98% 3/10 sharp chest pain, mod SOB, heart racing, headache. 3 min post Lexiscan injection 123 138/50 Nausea/vomitting, chest pain resolved. 6 min post Lexiscan injection 113 128/78 98% All symptoms resolved. Laying adrian performed as patient did not have shoes. Patient c/o 5/10 sharp chest pain prior to starting test which decreased to a 3/10. Patient c/o headache, mod SOB, nausea and vomitted x1 s/p adrian admin. Patient met target HR during laying adrian test. Chest pain resolved at this time. All symptoms resolved when patient proceeded to imaging ambulatory in no apparent distress. MPI Conclusion Myocardial perfusion is normal. There is no ischemia or evidence of prior infarction Ejection fraction is 60% with hyperdynamic wall motion
[2025-03-31] MEDS: Doxycycline Hyclate 100 MG CAP PO (20:37)
[2025-04-01 03:29] VITALS: BP 117/73; PULSE 78; RESP 18; TEMP 36.3; O2SAT 97
[2025-04-01] MEDS: Metoprolol 12.5 MG TAB PO (04:12)
[2025-04-01 06:17] VITALS: BP 119/82; PULSE 74; RESP 16; TEMP 36.5; O2SAT 97
[2025-04-01] MEDS: Normal Saline Flush 10 ML SYR IVP (07:55)
[2025-04-01] MEDS: Aspirin 81 MG CHEW PO (07:55)
[2025-04-01] MEDS: Doxycycline Hyclate 100 MG CAP PO (07:55)
[2025-04-01 09:08] LABS: Lyme Ab w Rflx to Lyme Confirm Negative (Negative)
--- NOTE | 2025-04-01 10:34 | W.PM.PROGNOT ---
Date of Service Date of service: 03/31/25 Time of Service: 10:00 Assessment and Plan Assessment and plan (1) Atypical chest pain: Start date: 03/30/25 Status: Acute Assessment and plan: A/w acute febrile illness CTA on admission reassuring Stress test today, though less likely cardiac. (2) Tick bite: Start date: 03/30/25 Status: Acute Assessment and plan: Tick panel was sent for evaluation and patient was initiated on doxycycline 100 mg twice daily. Continue this treatment until the patient is responding and/or other sources of her fever are discovered. She thinks she may have anaplasmosis, which is possible. (3) Fibromyalgia: Assessment and plan: Patient also may have an element of depression with chronic fibromyalgia pain. She did have increased stress 3 weeks ago having an upsetting conflict with her sister and has had treatment for severe depression secondary to pain in the past receiving ketamine take-home doses which she will take every 3 days for 10 days (seen in PDMP). No change. (4) Alcoholic cirrhosis of liver: Assessment and plan: Patient did stop drinking 10 years ago and has lost weight. Alcohol negative on admission. Labs are reassuring, if she does have cirrhosis this is compensated. Subjective Subjective Patient reports: voiding w/o difficulty and fever; denies diarrhea, nausea, vomiting or shortness of breath Interval history since last seen: Mid sternal chest pain continues, constant. NOt worse with exertion. She still feels dehydrated. She is getting sweats. no cough/URI symptoms. no rash noted or joint pain. Exam Narrative Exam Narrative: Gen: alert and oriented, NAD HEENT: conj clear, no icterus, MMM Lungs: CTAB, nl effort CV: RRR, no m/g/r. no edema abd: soft, NT/ND Ext: no joint redness/swelling. Objective Last Vital Signs Temp 36.5 C 04/01/25 06:17 Pulse 74 04/01/25 06:17 Resp 16 04/01/25 06:17 BP 119/82 04/01/25 06:17 Pulse Ox 97 04/01/25 06:17 Laboratory Results - last 24 hr 03/31/25 13:12 PT 10.2 INR 1.0 Time Spent with Patient Time Spent with Patient: 35-49 minutes Time was spent: preparing to see the patient(eg.review tests), obtaining and/or reviewing separately otained hiistory, ordering medications,tests, procedures, referring, communicating with other health physician primary care sports medicine, indepentently interpreting results, counseling the patient and care coordination
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
--- NOTE | 2025-04-01 13:52 | CMDISCH_ITS ---
Date of service: 04/01/25 Time of Service: 13:53 LACE Index Scoring Tool Questions: Length of Stay (in days): 2 Was the patient admitted via the E.D.?: Yes E.D. Visits: 1 Answers: Total Score: 6 Risk of Readmission: Low Risk Care Management Discharge Plan Reason for Hospitalization: atypical chest pain, tick bite Discharge Plan: Mariola was discharged with no new home care services. She will f/u with her PCP to discuss the results of her tick and lyme panels, and continue per her plan of care. Mariola was transported home in a private vehicle with her . Patient/Family Education Needs: Review of discharge instructions, activity, limitations, and discuss Ask me 3. SDOH Health Related Social Needs: Health related social needs material hardship house/ec on circumstance lonely/isolated Health related social needs details Pt experiences dif ficulty with food insecurity, is on SNAP. Health related social needs details: Pt experiences difficulty with food insecurity, is on SNAP.
[2025-04-02 22:46] LABS: B. miyamotoi PCR Negative (Negative); Babesia divergens/MO-1 Negative (Negative); Ehrlichia muris eauclairensis Negative (Negative)
== END 2025-04-01 11:21 | disposition home or self-care (01) ==
LOC: ER 18:14 → MS 03-31 06:02
PROVIDERS: Emergency Medicine; Admitting Provider Family Medicine; Emergency Provider Emergency Medicine; PCP Nurse Practitioner Family; Responsible Provider Family Medicine; Visit Provider Family Medicine
DX: R07.89 Other chest pain (principal); R00.0 Tachycardia, unspecified; R79.1 Abnormal coagulation profile; S20.363A Insect bite (nonvenomous) of bilateral front wall of thorax, initial encounter; M79.7 Fibromyalgia; K70.30 Alcoholic cirrhosis of liver without ascites; W57.XXXA Bitten or stung by nonvenomous insect and other nonvenomous arthropods, initial encounter; F12.90 Cannabis use, unspecified, uncomplicated; N20.0 Calculus of kidney; F10.21 Alcohol dependence, in remission; Z96.641 Presence of right artificial hip joint; R50.9 Fever, unspecified; R61 Generalized hyperhidrosis; Z59.87 Material hardship due to limited financial resources, not elsewhere classified; Z59.41 Food insecurity; R45.89 Other symptoms and signs involving emotional state
CPT/HCPCS: 00123; 36415; 71275; 78452; 80048; 80053; 80307; 85027; 87040; 87637; 87798; 93005; 93308; 99285; J1650; 71046; 80320; 81003; 81015; 83735; 84443; 84484; 85025; 85379; 85610; 86618; 93010; 93017; 99223; 99232; 99238; G0378; J2785; J3490

== ENCOUNTER 2025-04-14 13:55 | Outpatient (CLI) | payer MEDICAID, SELFPAY ==
--- NOTE | 2025-04-14 13:45 | RT.EKG_ITS ---
APPROVED REPORT Exam: Resting ECG Reason for Exam: Chest Pain Patient Location: O HR:78 bpm ECG Measurements Heart Rate 78 AXIS PA 160 P 68 QRSd 88 QRS 2 QT 384 T 25 QTc 438 Conclusion Sinus rhythm...normal P axis, V-rate 50- 99 Normal Electrocardiogram
== END 2025-04-14 13:56 | disposition home or self-care (01) ==
LOC: DI.CM 13:56
PROVIDERS: PCP Nurse Practitioner Family; Visit Provider Nurse Practitioner Family
DX: R07.89 Other chest pain (principal)
CPT/HCPCS: 93010

== ENCOUNTER → 2025-05-25 00:18 | Outpatient (CLI) | payer MEDICAID, SELFPAY ==
--- NOTE | 2025-05-25 10:30 | DI.RAD_ITS ---
Exam(s) XR CHEST 2V PA LATERAL EXAM: XR CHEST 2V PA LATERAL CLINICAL HISTORY: dyspnea/chest pain R07.89,R06.09. TECHNIQUE: 2D digital imaging was performed. COMPARISON: CR XR CHEST 2V PA LATERAL from 03/30/2025 FINDINGS: 2 views: Heart size is normal. The mediastinum is not widened. Lungs are clear. No infiltrates nor pleural effusions. IMPRESSION: No acute pulmonary findings. DATA REPOSITORY: RADIATION DOSE DELIVERED:
--- NOTE | 2025-05-25 12:15 | DI.MRI_ITS ---
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 TECHNIQUE: Multiplanar multisequence MRI of the Lumbar spine was performed. COMPARISON: CR XR LUMBAR SPINE COMPLETE from 09/15/2024 FINDINGS: Conus medullaris is at lower L1 level.. There is no evidence of conus mass nor subjacent clumping of intrathecal nerve roots to suggest arachnoiditis. The distal thecal sac appears unremarkable.There is no evidence of Tarlov intrasacral cysts nor other significant findings within the sacral canal Bones:There are no fractures nor ominous osseous lesions in the lumbar vertebral bodies and visualized sacrum. With respect to the individual levels... T12-L1: Unremarkable L1-2: Normal disc height and signal. No disc herniation nor central canal stenosis.No foraminal stenosis L2-3: Normal disc height. Mild annular bulging but no dominant disc herniation nor central spinal canal stenosis. There is mild bulging of the annulus into the floor of the exiting right neural foramen but there is no significant foraminal stenosis at this level (on either side).Facet joints at this level appear unremarkable L3-4: Normal disc height. No disc herniation but there is mild central canal stenosis which is mostly related to short AP dimensions of the pedicles and facet arthropathy. There is some annular bulging into the floor of the exiting left neural foramen but there does not appear to be significant foraminal stenosis at this level. L4-5: There is relatively preserved disc space height at this level. There is anterolisthesis of L4 upon L5 again noted, with approximately 6 mm anterior listhesis L4 upon L5 which is related to significant bilateral facet arthropathy. There is mild-moderate central stenosis.. This is also related to short AP dimensions of the pedicles and facet arthropathy and ligamentum flavum hypertrophy. Posteriorly there is a degenerative synovial cyst coming off the posterior aspect of the left facet joint at this level. This cyst measures 1.3 cm craniocaudal by 0.8 cm AP by 0.8 cm wide. This does not affect the exiting neural foramen and indeed despite the anterolisthesis which carries the lateral recesses forward, there does not appear to be significant foraminal stenosis on either side at this level. L5-S1: This level exhibits chronic advanced disc space narrowing with Modic sub endplate marrow changes. Posteriorly there is no disc herniation or central canal stenosis. There is no significant foraminal stenosis on either side at this level. Facet joints appear unremarkable. Soft tissues: paraspinal soft tissues appear unremarkable.There is a partially septated cyst noted in the right hepatic lobe, measuring 2.5 by 1.7 by 2.9 cm. IMPRESSION: 1. Findings as described individually above. There are no focal disc herniations. 2. There is degenerative anterolisthesis of L4 upon L5 again noted as described above. There is mild-moderate central canal stenosis at this level. Despite the anterior listhesis did does not appear to be significant foraminal stenosis on either side. However, there is a 13 x 8 x 8 mm degenerative synovial cyst coming off the posterior aspect of the left facet joint at this level. This does not impress upon the thecal sac. 3. There is advanced disc space narrowing at L5-S1 level but no disc herniation or canal stenosis nor foraminal stenosis at this level. DATA REPOSITORY:
== END ==
LOC: DI 00:18
PROVIDERS: PCP Nurse Practitioner Family; Visit Provider Nurse Practitioner Family
DX: R07.89 Other chest pain (principal); R06.09 Other forms of dyspnea; M43.16 Spondylolisthesis, lumbar region; M54.50 Low back pain, unspecified; G89.29 Other chronic pain
CPT/HCPCS: 71046; 72148